=== PATIENT | male | born 1965 | race Caucasian/White ===

== ENCOUNTER → 2020-03-25 14:13 | Outpatient (CLI) | payer SELFPAY | PROVIDERS: Visit Provider Nurse Practitioner Family | DX: Z02.4 Encounter for examination for driving license (principal) ==

== ENCOUNTER 2020-05-28 20:19 | Emergency (ER) | payer OTHER, SELFPAY ==
[2020-05-28] VITALS (9 sets, daily range): BP systolic 147–256; BP diastolic 72–105; PULSE 53–78; RESP 15–21; TEMP 36.6–36.8; O2SAT 98–100; BMI 29.7; BMI 29.8
--- NOTE | 2020-05-28 20:33 | ECG_ITS ---
APPROVED REPORT Exam: Resting ECG HR:66 bpm ECG Measurements Heart Rate 66 AXES TN 164 P 51 QRSd 90 QRS 55 QT 382 T 64 QTc 400 <Conclusion> Normal sinus rhythm with sinus arrhythmia ST elevation, Probable early repolarization Abnormal ECG Electronically signed by : Travis Juan, 05/30/2020 20:00:13
--- NOTE | 2020-05-28 20:39 | PC.NURSE ---
PATIENT SENT TO ER PER ALEXUS OMALLEY APRN FOR FURTHER EVALUATION OF SUDDEN ONSET OF DIZZINESS AND ELEVATED BLOOD PRESSURE. REPORT GIVEN TO Maureen UGALDE RN
--- NOTE | 2020-05-28 20:40 | XR_ITS ---
PROCEDURE: XR CHEST PORTABLE CLINICAL HISTORY: chest pain COMPARISON: No exams were available for comparison FINDINGS: There is mild cardiomegaly without failure. There is a calcified granuloma in right upper lobe. Lungs are otherwise clear. No acute bony abnormalities. IMPRESSION: Mild cardiomegaly otherwise negative Dictated by: Alfred Perry MD 05/28/2020 21:57 Alfred Perry MD in [place] 05/28/2020 21:57
--- NOTE | 2020-05-28 20:41 | ECG_ITS ---
APPROVED REPORT Exam: Resting ECG HR:73 bpm ECG Measurements Heart Rate 73 AXES [place] 166 P 57 QRSd 92 QRS 61 QT 370 T 38 QTc 407 <Conclusion> Normal sinus rhythm Normal ECG Electronically signed by : Travis Juan, 05/30/2020 19:58:18
--- NOTE | 2020-05-28 20:47 | HMH.EDGENADL ---
ED Disposition Clinical Impression: BPPV (benign paroxysmal positional vertigo) Qualifiers: Laterality: unspecified laterality Qualified Code(s): H81.10 - Benign paroxysmal vertigo, unspecified ear Disposition: Home, Self-Care Condition on Discharge: Fair Instructions: Benign Paroxysmal Positional Vertigo Prescriptions: Meclizine HCl [Antivert 12.5mg tablet] 12.5 mg PO Q6 #12 tab Transmission Status: Received by [facility] Referrals: PCP,No [Primary Care Provider] - Time of Disposition: 23:17 - Critical Care Critical Care Time: No Attestation: On 05/28/20, the high probability of a clinically significant, sudden or life threatening deterioration of the following system(s) required my full and direct attention, intervention and personal management. The time I documented below is in addition to time spent performing reported procedures but includes the following listed in this critical care notation. Medical Decision Making - Medical Records Medical records reviewed: Yes: I reviewed the patient's medical records. - Nicolás Inquiry Pt receiving controlled substance: No Vital Signs: 05/28/20 20:30 05/28/20 20:35 05/28/20 20:42 Temperature 97.8 F 98.3 F Temperature Source Oral Oral Pulse Rate Pulse Rate [Left Brachial] 69 78 Respiratory Rate 21 15 Blood Pressure Blood Pressure [Left Arm] 171/97 H 171/103 H 185/105 H Blood Pressure Mean [Left Arm] 121 125 131 Blood Pressure Source [Left Arm] Automatic Cuff Automatic Cuff Blood Pressure Position [Left Arm] Sitting Sitting Supine 02 Sat by Pulse Oximetry 99 98 Oxygen Delivery Method Room Air Room Air 05/28/20 20:59 05/28/20 21:30 05/28/20 22:00 Temperature Temperature Source Pulse Rate Pulse Rate [Left Brachial] 58 L 64 64 Respiratory Rate 15 18 18 Blood Pressure Blood Pressure [Left Arm] 152/84 H 160/72 H 163/91 H Blood Pressure Mean [Left Arm] 106 101 115 Blood Pressure Source [Left Arm] Automatic Cuff Automatic Cuff Automatic Cuff Blood Pressure Position [Left Arm] Sitting Supine Supine 02 Sat by Pulse Oximetry 98 98 100 Oxygen Delivery Method Room Air Room Air Room Air 05/28/20 22:30 05/28/20 23:00 05/28/20 23:30 Temperature Temperature Source Pulse Rate Pulse Rate [Left Brachial] 58 L 53 L 54 L Respiratory Rate 18 18 Blood Pressure Blood Pressure [Left Arm] 256/86 H 147/86 H 150/83 H Blood Pressure Mean [Left Arm] 142 106 105 Blood Pressure Source [Left Arm] Automatic Cuff Automatic Cuff Blood Pressure Position [Left Arm] Supine Supine 02 Sat by Pulse Oximetry 98 99 98 Oxygen Delivery Method Room Air Room Air 05/29/20 00:00 05/29/20 00:08 Temperature 98.6 F Temperature Source Oral Pulse Rate 85 Pulse Rate [Left Brachial] 54 L Respiratory Rate 18 15 Blood Pressure 152/84 H Blood Pressure [Left Arm] 152/79 H Blood Pressure Mean [Left Arm] 103 Blood Pressure Source [Left Arm] Automatic Cuff Blood Pressure Position [Left Arm] Supine 02 Sat by Pulse Oximetry 98 Oxygen Delivery Method Room Air Room Air - Lab Data Lab Results 05/28/20 20:55: WBC 8.3, RBC 4.79, Hgb 14.3, Hct 40.5 L, MCV 84.4, MCH 29.9, MCHC 35.4, RDW 13.3, Plt Count 215, MPV 7.6, Neut % (Auto) 67.8, Lymph % (Auto) 25.9, Routt % (Auto) 5.2, Eos % (Auto) 0.7, Baso % (Auto) 0.4, Neut # (Auto) 5.6, Lymph # (Auto) 2.1, Routt # (Auto) 0.4, Eos # (Auto) 0.1, Baso # (Auto) 0.0 05/28/20 20:55: Sodium 142, Potassium 4.1, Chloride 106, Carbon Dioxide 27, Anion Gap 13.1, BUN 17, Creatinine 0.80, Estimated Creat Clear 143, Estimated GFR 100, Est GFR ( Amer) 121, Glucose 117 H, Calcium 9.3, Troponin I < 0.01 05/28/20 23:30: Troponin I < 0.01 Result diagrams: 05/28/20 20:55 05/28/20 20:55 Orders (Tests/Meds): ED MEDICATIONS Discontinued Medications Generic Name Dose Route Start Last Admin Trade Name Freq PRN Reason Stop Dose Admin Aspirin 325 mg 05/28/20 20:47 05/28/20 20:57 Aspirin 325mg Tablet P
[2020-05-28 21:02] LABS: Basophils % 0.4 % (0.1-2.0); Eosinophils # 0.1 K/mm3 (0.0-0.4); Eosinophils % 0.7 % (0.1-12.0); Hematocrit 40.5 % (42.0-52.0); Hemoglobin 14.3 g/dL (14.1-18.0); Lymphocytes # 2.1 K/mm3 (0.7-4.5); Lymphocytes % 25.9 % (10-50); Mean Corpuscular HGB Conc 35.4 g/dL (31.8-35.4); Mean Corpuscular Hemoglobin 29.9 pg (27.0-31.2); Mean Corpuscular Volume 84.4 fl (80-94); Mean Platelet Volume 7.6 fl (7.4-10.4); Monocytes # 0.4 K/mm3 (0.1-1.0); Monocytes % 5.2 % (1.7-9.3); Neutrophils # 5.6 K/mm3 (1.8-7.8); Neutrophils % 67.8 % (37.0-80.0); Platelet Count 215 K/mm3 (142-424); Red Blood Count 4.79 M/mm3 (4.60-6.20); Red Cell Distribution Width 13.3 % (11.5-17.5); White Blood Count 8.3 K/mm3 (4.8-10.8)
[2020-05-28 21:13] LABS: Chloride 106 mmol/L (98-107); Sodium 142 mmol/L (136-145)
[2020-05-28 21:14] LABS: Potassium 4.1 mmoL/L (3.5-5.1)
[2020-05-28 21:17] LABS: Anion Gap 13.1 mEq/L (5-15); Blood Urea Nitrogen 17 mg/dl (9-20); Calcium 9.3 mg/dl (8.4-10.2); Carbon Dioxide 27 mmol/L (22.0-30.0); Creatinine Clearance Estimated 143 mL/min (50-200); Estimated Glomerular Filt Rate 100 ml/min (>60); GFR (African American) 121 ML/MIN (>60); Glucose 117 mg/dl (74-100)
--- NOTE | 2020-05-28 21:24 | PC.NURSE ---
repeat ekg to rule out stemi
[2020-05-28 21:40] LABS: Troponin I < 0.01 ng/ml (0.00-0.034)
--- NOTE | 2020-05-28 22:17 | PC.NURSE ---
NOTIFIED PATIENT OF REQUEST BY MD TO REPEAT A TROPONIN AT THE 3 HOUR ROSY. PATIENT AGREEABLE AT THIS TIME. WATER GIVEN TO PATIENT, AND TV TURNED ON.
--- NOTE | 2020-05-28 23:36 | PC.NURSE ---
2nd troponin collected and sent to lab
[2020-05-28 23:59] LABS: Troponin I < 0.01 ng/ml (0.00-0.034)
[2020-05-29] VITALS: BP 152/79; PULSE 54; RESP 18; O2SAT 98
[2020-05-29 00:08] VITALS: BP 152/84; PULSE 85; RESP 15; TEMP 37; O2SAT 98
== END 2020-05-29 00:09 | disposition home or self-care (01) ==
LOC: UTC 20:24 → ER 20:39
PROVIDERS: Emergency Provider Emergency Medicine
DX: H81.10 Benign paroxysmal vertigo, unspecified ear (principal)
CPT/HCPCS: 71045; 80048; 84484; 85025; 93005; 96365; 99284

== ENCOUNTER → 2020-08-04 16:21 | Outpatient (CLI) | payer OTHER, SELFPAY ==
[2020-08-04 17:05] LABS: Basophils % 0.5 % (0.1-2.0); Eosinophils # 0.1 K/mm3 (0.0-0.4); Eosinophils % 1.3 % (0.1-12.0); Hematocrit 41.2 % (42.0-52.0); Hemoglobin 13.2 g/dL (14.1-18.0); Lymphocytes # 2.4 K/mm3 (0.7-4.5); Lymphocytes % 41.4 % (10-50); Mean Corpuscular Hemoglobin 27.4 pg (27.0-31.2); Mean Corpuscular Volume 85.6 fl (80-94); Mean Platelet Volume 6.9 fl (7.4-10.4); Monocytes # 0.4 K/mm3 (0.1-1.0); Monocytes % 6.3 % (1.7-9.3); Neutrophils # 2.9 K/mm3 (1.8-7.8); Neutrophils % 50.4 % (37.0-80.0); Platelet Count 229 K/mm3 (142-424); Red Blood Count 4.82 M/mm3 (4.60-6.20); Red Cell Distribution Width 13.4 % (11.5-17.5); White Blood Count 5.8 K/mm3 (4.8-10.8)
[2020-08-04 18:03] LABS: Alanine Aminotransferase 29 U/L (12-78); Albumin Level 4.6 g/dl (3.5-5.0); Albumin/Globulin Ratio 1.7 (1.1-1.8); Alkaline Phosphatase 62 U/L (38-126); Anion Gap 12.6 mEq/L (5-15); Aspartate Amino Transferase 28 U/L (17-59); Bilirubin,Total 0.5 mg/dl (0.2-1.3); Blood Urea Nitrogen 10 mg/dl (9-20); Calcium 9.4 mg/dl (8.4-10.2); Carbon Dioxide 29 mmol/L (22.0-30.0); Chloride 105 mmol/L (98-107); Cholesterol 217 mg/dl (140-200); Estimated Glomerular Filt Rate 78 ml/min (>60); GFR (African American) 94 ML/MIN (>60); Globulin 2.7 g/dL (1.3-3.2); Glucose 88 mg/dl (74-100); HDL Cholesterol 36 mg/dl (40-60); Potassium 4.6 mmoL/L (3.5-5.1); Sodium 142 mmol/L (136-145); Total Protein,Serum 7.3 g/dl (6.3-8.2); Triglycerides 154 mg/dl (30-150); VLDL Cholesterol 31 mg/dL (0-40)
[2020-08-04 18:14] LABS: Direct LDL Cholesterol 159.77 mg/dL (100-129)
[2020-08-04 20:25] LABS: Hemoglobin A1C 4.9 % (4.0-6.0)
== END ==
PROVIDERS: Visit Provider Internal Medicine Adolescent Medicine
DX: Z00.00 Encounter for general adult medical examination without abnormal findings (principal); K62.5 Hemorrhage of anus and rectum; R35.8 Other polyuria
CPT/HCPCS: 36415; 80053; 80061; 83036; 85025

== ENCOUNTER → 2020-08-18 10:19 | Outpatient (CLI) | payer OTHER, SELFPAY ==
--- NOTE | 2020-08-18 10:25 | XR_ITS ---
PROCEDURE: XR KNEE RT 4V CLINICAL INDICATION: right knee pain COMPARISON: CR Right Knee from 05/13/2018 FINDINGS: No fracture or dislocation. No lytic or blastic change. There is normal mineralization. There are mild osteoarthritic changes of the medial compartment and patellofemoral joint. Spurring is present at the intercondylar region of the distal femur and tibial spine area as well as the medial compartment and patella Other findings:None. IMPRESSION: Osteoarthritis Dictated by: Alfred Perry MD 08/18/2020 14:55 Alfred Perry MD in [place] 08/18/2020 14:55
--- NOTE | 2020-08-18 10:25 | XR_ITS ---
PROCEDURE: XR KNEE LT 4V CLINICAL INDICATION: left knee pain COMPARISON: CR Right Knee from 05/13/2018 FINDINGS: Status post medial hemiarthroplasty. The prosthesis appears to be in good alignment. No fracture or dislocation. Calcification noted in the suprapatellar region unchanged. Mild osteoarthritic changes the patellofemoral joint and lateral compartment. IMPRESSION: Good position medial hemiarthroplasty with osteoarthritis Dictated by: Alfred Perry MD 08/18/2020 14:56 Alfred Perry MD in [place] 08/18/2020 14:56
[2020-08-18 14:00] LABS: C-Reactive Protein 1.4 mg/L (0-4)
[2020-08-18 14:15] LABS: Erythrocyte Sedimentation Rate 12 mm/hr (0-20)
== END ==
PROVIDERS: PCP Internal Medicine Adolescent Medicine; Visit Provider Orthopaedic Surgery
DX: M25.562 Pain in left knee (principal); M25.561 Pain in right knee
CPT/HCPCS: 36415; 73564; 85651; 86140

== ENCOUNTER → 2020-08-18 12:12 | Outpatient (CLI) | payer OTHER, SELFPAY | PROVIDERS: Visit Provider Orthopaedic Surgery | DX: M25.562 Pain in left knee (principal) | CPT/HCPCS: 36415; 85651; 86140 ==

== ENCOUNTER → 2020-10-11 09:04 | Outpatient (CLI) | payer OTHER, SELFPAY ==
[2020-10-11 11:09] LABS: Coronavirus 19 IgG Antibody Positive (Negative)
[2020-10-11 11:10] LABS: Coronavirus 19 IgM Antibody Positive (Negative)
== END ==
PROVIDERS: PCP Internal Medicine Adolescent Medicine; Visit Provider Surgery
DX: Z01.812 Encounter for preprocedural laboratory examination (principal); Z86.16 Personal history of COVID-19; Z12.11 Encounter for screening for malignant neoplasm of colon
CPT/HCPCS: 36415; 86328; U0003

== ENCOUNTER 2020-10-12 09:05 | Day surgery (SDC) | payer OTHER, SELFPAY ==
[2020-10-12 09:25] VITALS: BP 161/110; PULSE 74; RESP 18; TEMP 36.9; O2SAT 97; BMI 28.5
--- NOTE | 2020-10-12 09:41 | P.PN_ITS ---
[facility] Anesthesia Checklist - Patient Identification Patient Identification: Arm Band - Structural Data Admitted From: Home Planned Operative Procedure/s: colonoscopy Consent for Planned Operative Procedure(s) Verified: Yes Verified Documents: Surgical Consent, History and Physical - NPO Status Verified Time NPO: 00:00 - Additional verifications Anesthesia Reactions: No - Airway Assessment C-Spine Mobility Assessed: Yes (mp2) TMJ Mobility Assessed: Yes Dentition: Good Dentition - Neurological Assessment Level of Consciousness: Awake, Alert - Anesthesia Plan Anesthesia Risk discussed: Yes Anesthesia Plan: Verified ASA Class: II Anesthesia Type: MAC [facility] History I have reviewed the patient's past medical history: Yes Medical History: Reports:: Hypertension Denies:: Cancer, Diabetes Mellitus Type 1, Diabetes Mellitus Type 2, Internal Pacemaker, MRSA, Seizures *Have you ever received a pneumonia vaccine?: No *Have you received a flu vaccine this season?: Yes Other Medical History: Reports: Arthritis Anesthesia experience/problems:: nac Laterality Cases: Left: Arthroscopy Shoulder, Total Knee Replacement, Bilateral: Arthroscopy Knee Other Surgeries: Yes: Colonoscopy. No: Pacemaker Amputation: No Fractures: No - *Social History Smoking Status: Never smoker Alcohol Intake: never Substance Use Type: denies use *Occupational Status:: unemployed Household Members: spouse *Travel in the last 8 weeks: None Family Hx:: No significant family history
[2020-10-12 10:46] VITALS: BP 102/64; PULSE 63; RESP 12; TEMP 36.9; O2SAT 96
--- NOTE | 2020-10-12 10:49 | HMH.SCOPE ---
- Procedure: Date: 10/12/20 Patient Date of :: 1965 Procedure Performed:: Total colonoscopy to terminal ileum with polypectomy by snare and biopsy forceps Indications:: Patient is a 55-year-old male from [place] who is referred by Dr. Supa Barry for colonoscopy. Patient had actually requested referral. I had apparently performed colonoscopy on him for rectal bleeding 15 years ago. Patient states that he had hemorrhoids at that time. Recently he has had some rectal bleeding. Occasionally he has some mucousy blood. He has not had any for the past 2 months. He also describes stomach problems . He describes occasionally awakening with nausea and having to have bowel movement. He also seems to have hyperactive type bowel sounds. Performing Provider:: Kingston Justice MD Referring Provider:: Supa Barry MD Sedation:: MAC sedation Procedure:: Consent was obtained. Patient was taken to endoscopy procedure room. He was positioned in lateral decubitus position. Adequate intravenous sedation was achieved with anesthesia titration of propofol. Please note the patient required an appreciable amount of administration of anesthetic for adequate sedation. Variable stiffness Olympus colonoscope was inserted via the anus. Was advanced to the cecum without significant difficulty. Ileocecal valve and appendiceal orifice were clearly identified. Colonoscope was advanced a short distance into the terminal ileum which appeared grossly normal. Colonoscope was withdrawn through the colon with careful surveillance. Near the hepatic flexure there is a small, several millimeter, adenomatous appearing polyp removed with cold cutting snare. Adjacent to this there was a tiny diminutive polyp removed with biopsy forceps. Colonoscope was withdrawn through the remainder of the colon with careful surveillance. In the distal transverse colon there were a couple of tiny diminutive polyps removed with biopsy forceps. Retroflexion within the rectum revealed some minor prolapsing internal hemorrhoids. Colonoscope was withdrawn. Findings:: Minimal prolapsing internal hemorrhoids Adenomatous appearing hepatic flexure polyp Adjacent diminutive hepatic flexure polyp Small distal transverse colon polyp, diminutive, x2 Recommendations:: Repeat colonoscopy 3 to 5 years pending pathology. Occasional rectal bleeding likely from minor prolapsing internal hemorrhoid Complications:: None immediately apparent Estimated blood obtained (mL): 1
[2020-10-12 10:56] VITALS: BP 98/59; PULSE 86; RESP 16; O2SAT 97
[2020-10-12 11:06] VITALS: BP 137/77; PULSE 70; RESP 16; O2SAT 99
[2020-10-12 11:16] VITALS: BP 137/85; PULSE 60; RESP 16; TEMP 36.9; O2SAT 99
== END 2020-10-12 11:18 | disposition home or self-care (01) ==
LOC: OUTP 09:05
PROVIDERS: PCP Internal Medicine Adolescent Medicine; Visit Provider Surgery
PROC: 0DJD8ZZ Inspection of Lower Intestinal Tract, Via Natural or Artificial Opening Endoscopic (ICD-10-PCS; CPT 45385; principal; 2020-10-12 10:30)
DX: K64.2 Third degree hemorrhoids; K63.5 Polyp of colon; I10 Essential (primary) hypertension; M19.90 Unspecified osteoarthritis, unspecified site; Z79.899 Other long term (current) drug therapy
CPT/HCPCS: 45385

== ENCOUNTER → 2021-02-02 13:22 | Outpatient (CLI) | payer OTHER, SELFPAY ==
--- NOTE | 2021-02-02 13:24 | XR_ITS ---
PROCEDURE: XR SHOULDER LT MIN 2V CLINICAL INDICATION: left shoulder pain COMPARISON: No exams were available for comparison FINDINGS: No acute fracture or dislocation. Calcification is present along the superior aspect of the humeral head in the subacromial region consistent with calcific tendinitis. Sclerotic density noted in the inferior glenoid area at 5 mm and may be due to a bone island. There are mild osteoarthritic changes of the glenohumeral joint. The AC joint has an unremarkable appearance. No significant subacromial stenosis IMPRESSION: Calcific tendinitis of the rotator cuff with mild osteoarthritic change of the glenohumeral joint Dictated by: Alfred Perry MD 02/02/2021 13:34 Alfred Perry MD in [place] 02/02/2021 13:34
== END ==
PROVIDERS: PCP Internal Medicine Adolescent Medicine; Visit Provider Orthopaedic Surgery
DX: M25.512 Pain in left shoulder (principal)
CPT/HCPCS: 73030

== ENCOUNTER → 2021-02-17 12:46 | Outpatient (CLI) | payer OTHER, SELFPAY ==
--- NOTE | 2021-02-17 12:46 | IR_ITS ---
PROCEDURE: IR ARTHROGRAM SHOULDER LT CLINICAL INDICATION: left shoulder pain; recurrent dislocations COMPARISON: CR XR SHOULDER LT MIN 2V from 02/02/2021 FINDINGS: Following obtaining informed consent and time-out procedure under aseptic conditions and local anesthesia with 1 percent buffered lidocaine, a 20 gauge spinal needle was inserted into the left shoulder via the anterior approach. Approximately 10 mL of a mixture of Isovue, gadolinium, and lidocaine was injected. There was adequate localization of contrast. The patient tolerated the procedure well without evidence of immediate complication. Images were then obtained and the patient was sent to MRI where MRI arthrogram images were obtained. There is no abnormal localization of contrast that would indicate a rotator cuff tear. There is a small metallic density projecting in the axillary region measuring approximately 4 mm. No evidence of adhesive capsulitis. IMPRESSION: Uneventful and unremarkable left shoulder arthrogram. Please see MRI report for further description. Dictated by: Alfred Perry MD 02/24/2021 09:52 Alfred Perry MD in [place] 02/24/2021 09:52
--- NOTE | 2021-02-17 12:46 | MR_ITS ---
PROCEDURE: MR SHOULDER LT W CON CLINICAL INDICATION: left shoulder pain; recurrent dislocations Limited ROM. COMPARISON: CR,RF IR ARTHROGRAM SHOULDER LT from 02/17/2021 TECHNIQUE: Routine multiplanar multi echo sequences are performed following intra articular injection of contrast.. FINDINGS: There is a moderate degree of motion artifact on every sequence. This obscures fine detail. Mild prominence of the acromioclavicular joint. No obvious subacromial stenosis. The infraspinatus tendon has an unremarkable appearance. There is a full-thickness tear involving the posterior aspect of the supraspinatus tendon with a small amount of localization of contrast in the infraclavicular region. Heterogeneous hypointensity is present in the subacromial region. One of these areas may represent some calcification noted on the radiograph. The subscapularis and teres minor tendons have an unremarkable appearance. The bicipital tendon is in place. There is a question of a SLAP tear of the superior labrum versus a sublabral recess. It is difficult to distinguish the difference between the 2 due to the motion artifact.. Subchondral cystic changes are present in the humeral head. Two small areas do fill with contrast. There is some irregularity of the humeral head consistent with degenerative changes. IMPRESSION: 1. Full-thickness tear involves the posterior aspect of the supraspinatus tendon with some heterogeneous intensity in the sub acromial area some which may be due to calcification and partially retracted tendon. 2. Possible slap tear of the glenoid labrum versus sublabral recess. It is difficult to distinguish between the 2 secondary to motion artifact. 3. Subchondral cystic changes of the humeral head Dictated by: Alfred Perry MD 02/24/2021 10:06 Alfred Perry MD in [place] 02/24/2021 10:06
--- NOTE | 2021-02-17 12:50 | XR_ITS ---
PROCEDURE: XR ORBIT BILATERAL MIN 4V CLINICAL INDICATION: MRI CLEARANCE History of foreign body in the eye COMPARISON: No exams were available for comparison TECHNIQUE: AP views are obtained of the orbits with the patient looking up and down. FINDINGS: No radio opaque foreign bodies evident. IMPRESSION: No radio opaque orbital foreign body identified. Dictated by: Alfred Prery MD 02/17/2021 13:00 Alfred Perry MD in [place] 02/17/2021 13:00
== END ==
PROVIDERS: PCP Internal Medicine Adolescent Medicine; Visit Provider Orthopaedic Surgery
DX: M25.512 Pain in left shoulder (principal); M24.412 Recurrent dislocation, left shoulder; G89.29 Other chronic pain; H05.53 Retained (old) foreign body following penetrating wound of bilateral orbits
CPT/HCPCS: 70200; 73040; 73222; Q9967

== ENCOUNTER 2021-04-04 13:27 | Emergency (ER) | payer OTHER, SELFPAY ==
--- NOTE | 2021-04-04 13:29 | XR_ITS ---
PROCEDURE: XR HAND RT MIN 3V CLINICAL INDICATION: SLAMMED HAND IN DOOR COMPARISON: No exams were available for comparison FINDINGS: There is a well-circumscribed lucency through the distal and ulnar aspect of the proximal phalanx of the 3rd digit. This is consistent with an old fracture. No acute fracture or dislocation is evident. The joint spaces are well-preserved. No significant degenerative/arthritic changes. No erosive changes evident. Other findings:Nonspecific soft tissue calcifications present along the anterior distal aspect of the radius IMPRESSION: Old fracture involving the proximal phalanx of the 3rd digit. No acute finding apparent Dictated by: Alfred Perry MD 04/04/2021 14:55 Alfred Perry MD in [place] 04/04/2021 14:55
[2021-04-04 13:50] VITALS: BP 159/112; PULSE 60; RESP 20; TEMP 36.8; O2SAT 98; BMI 29.9
--- NOTE | 2021-04-04 14:34 | HMH.EDUTC ---
[facility] [place] Disposition Clinical Impression: Finger sprain Qualifiers: Encounter type: initial encounter Finger: middle finger Sprain of finger site: unspecified site Laterality: right Qualified Code(s): S63.612A - Unspecified sprain of right middle finger, initial encounter Disposition: Home, Self-Care Condition on Discharge: Good Instructions: How To Perform RICE (Rest, Ice, Compress, Elevate), Ibuprofen Additional Instructions: *RICE, Rest the extremity, Ice 15-20 minutes 3-4 times daily, Compress- wear the nathen wrap as discussed as much as possible to help reduce swelling and pain, Elevate the extremity when at rest *Nathen wrap is for support and help control swelling, use it except in the shower. Be sure that is not to tight but not to loose either *Elevate when resting *Ibuprofen every 6-8 hours as needed for pain an inflammation. If need something more can take Tylenol in between doses of Ibuprofen to help Immediately follow up with your family doctor for new or worsening of symptoms, or no noticeable improvement over the next 3-5 days Follow up with Dr Trejo in Orthopedics if needed, call and make appointment Follow up with your Family Doctor for further evaluation and treatment Referrals: Supa Barry MD [Primary Care Provider] - As needed Андрей Trejo MD [Staff Physician] - (Call office for appointment if needed) Time of Disposition: 14:42 Medical Decision Making - Nicolás Inquiry Pt receiving controlled substance: No Nicolás was queried for this patient: No Vital Signs: 04/04/21 13:50 04/04/21 14:38 Temperature 98.3 F 98.3 F Temperature Source Oral Pulse Rate 60 Pulse Rate [Left Brachial] 60 Respiratory Rate 20 20 Blood Pressure 159/112 H Blood Pressure [Left Arm] 159/112 H Blood Pressure Mean [Left Arm] 127 Blood Pressure Source [Left Arm] Automatic Cuff Blood Pressure Position [Left Arm] Sitting 02 Sat by Pulse Oximetry 98 Oxygen Delivery Method Room Air - Radiology Data #1 Image(s): Hand Image Reviewed: Yes I have reviewed radiologist's interpretation Old fracture involving the proximal phalanx of the 3rd digit. No acute finding apparent - Physician Consults Physician Consulted: Dr Trejo Time: 14:30 Reason -: Orthopedic Eval/Care Comment/Response: Spoke with Dora Trejo office and informed her of xray finding and she advised she would speak with Dr Trejo and call back Spoke with Dr Trejo and he advised appeared like old fracture have Radiology read it [facility] [place] HPI - General Stated complaint: AO 04/03/21 Right hand 2 fingers slammed in door Time Seen by Provider: 04/04/21 14:34 Mode of Arrival: Ambulatory Source of Information: Patient Limitations: No Limitations Description of Symptoms (Recalled from Triage Doc. by RN): PATIENT C/O PAIN AND SWELLING TO RIGHT HAND. STATES HAND WAS SMASHED BETWEEN 2 AUTOMATIC SLIDING DOORS AT [facility] YESTERDAY HEENT Symptoms (Recalled from RN notes): No Resp Symptoms (Recalled from RN notes): No Skin Symptoms (Recalled from RN notes): No MS Symptoms (Recalled from RN notes): Yes Functional Status (Recalled from RN notes): WNL - History of Present Illness Provider Complaint: Patient state that he was at [facility] yesterday and went to push open a door that did not open and it started moving and smashed his right hand across his fingers States that ever since he has been having pain in his middle and ring finger with swelling in all his fingers and hand so he came in States that he notified [facility] about his injury - Related Data Home Medications Medication Instructions Recorded Confirmed gabapentin 600 mg tablet 600 mg PO TID tab 01/12/21 04/04/21 Oxycodone HCl/Acetaminophen 1 tab PO QID 04/04/21 04/04/21 [Percocet 10-325 mg Tablet] Allergies Allergy/AdvReac Type Severity Reaction Status Date / Time No Known Allergies Allergy Verified 03/02/21 15:45 - Worker's Comp Is this a Worker's Comp case?: No [facility] History - H
[2021-04-04 14:38] VITALS: BP 159/112; PULSE 60; RESP 20; TEMP 36.8; O2SAT 98
== END 2021-04-04 15:23 | disposition home or self-care (01) ==
PROVIDERS: Emergency Provider Nurse Practitioner; PCP Internal Medicine Adolescent Medicine
DX: S63.612A Unspecified sprain of right middle finger, initial encounter (principal); W23.1XXA Caught, crushed, jammed, or pinched between stationary objects, initial encounter; Y92.89 Other specified places as the place of occurrence of the external cause; I10 Essential (primary) hypertension
CPT/HCPCS: 73130; 99202; G0463

== ENCOUNTER → 2021-05-11 09:45 | Outpatient (CLI) | payer OTHER, SELFPAY ==
--- NOTE | 2021-05-11 09:50 | XR_ITS ---
PROCEDURE: XR HAND RT MIN 3V CLINICAL INDICATION: RT 3rd/4th digit injury COMPARISON: CR XR HAND RT MIN 3V from 04/04/2021 FINDINGS: Old fracture once again noted involving the distal aspect of the proximal phalanx of the 3rd digit along the ulnar side Mild osteoarthritic changes at the 1st interphalangeal joint and 1st metacarpophalangeal joint. Mild degenerative changes in the wrist. No acute fracture apparent. Other findings:None. IMPRESSION: No change with no acute finding. Old ununited fracture of the proximal phalanx of the 3rd digit Dictated by: Alfred Perry MD 05/11/2021 11:55 Alfred Perry MD in [place] 05/11/2021 11:55
== END ==
PROVIDERS: PCP Internal Medicine Adolescent Medicine; Visit Provider Orthopaedic Surgery
DX: S63.619A Unspecified sprain of unspecified finger, initial encounter (principal)
CPT/HCPCS: 73130

== ENCOUNTER → 2021-08-22 15:08 | Outpatient (CLI) | payer OTHER, SELFPAY ==
--- NOTE | 2021-08-22 15:11 | XR_ITS ---
PROCEDURE: XR FOOT RT MIN 3V CLINICAL INDICATION: MASS OF RT FOOT COMPARISON: No exams were available for comparison FINDINGS: No fracture or dislocation. No lytic or blastic change. There is normal mineralization. The joint spaces are well-preserved. No significant degenerative/arthritic changes. No erosive changes evident. Other findings:Focal soft tissue protrusion noted along the lateral aspect of the base of the 5th metatarsal region. No bony erosive change apparent. This measures 1.9 cm at its base IMPRESSION: Soft tissue mass base of 5th metatarsal without bony erosion. Dictated by: Alfred Perry MD 08/22/2021 17:29 Alfred Perry MD in [place] 08/22/2021 17:29
== END ==
PROVIDERS: PCP Internal Medicine Adolescent Medicine; Visit Provider Internal Medicine Adolescent Medicine
DX: R22.41 Localized swelling, mass and lump, right lower limb (principal)
CPT/HCPCS: 73630

== ENCOUNTER → 2021-09-07 13:09 | Outpatient (CLI) | payer OTHER, SELFPAY ==
--- NOTE | 2021-09-07 13:36 | MR_ITS ---
PROCEDURE INFORMATION: Exam: MR Right Lower Extremity Other Than Joint Without Contrast; Foot Exam date and time: 09/07/2021 1:36 PM Age: 56 years old Clinical indication: Pain; Foot; Right; Additional info: Soft tissue mass. PT dropped concrete block on foot 6 months ago, now has soft tissue mass on lateral side of foot. PT states it gets bigger as the day goes on and hes up moving a lot. TECHNIQUE: Imaging protocol: MR of the Right lower extremity without contrast. Exam focused on the foot. COMPARISON: CR XR FOOT RT MIN 3V 08/22/2021 3:14 PM FINDINGS: Limitations: The large [id number] utilized to image the entire foot and ankle results in proportionally lower anatomic detail. Bones and cartilage: There is no acute fracture or dislocation. No aggressive bone lesions are present. There are small dorsal and plantar calcaneal enthesophytes. Joint spaces: A mild effusion involves the talonavicular joint. LIGAMENTS: Lisfranc ligament: Unremarkable. No evidence of tear. TENDONS: Flexor tendons of foot: Unremarkable. No evidence of tear. Tibialis posterior tendon: Unremarkable as visualized. Peroneal tendons: Trace tenosynovitis involves the peroneal tendon sheath. Extensor tendons of foot: Unremarkable. No evidence of tear. Tibialis anterior tendon: Unremarkable as visualized. Tarsal canal (Sinus tarsi): Unremarkable. Tarsal tunnel: Unremarkable. Soft tissues: The palpable lesion along the lateral aspect of the fifth tarsometatarsal joint was indicated with a skin marker. In this region there is an oval fluid signal intensity mass in the subcutaneous fat that measures 1.2 x 0.7 x 0.9 cm (AP, ML, CC), as measured on series 4/image 23 and series 6/image 35. There is no convincing neck from the adjacent fifth tarsometatarsal joint, although this could be missed due to the large field of view of the study. Adjacent blood vessels do not appear to communicate with this cystic appearing lesion. A solid mucinous mass cannot be excluded in the absence of IV contrast. Moderate subcutaneous edema involves the dorsolateral foot. Plantar fascia: Unremarkable as visualized. IMPRESSION: 1. Cystic-appearing 1.2 x 0.7 x 0.9 cm mass in the soft tissues lateral to the fifth tarsometatarsal joint. A mucinous solid mass cannot be excluded in the absence of IV contrast. There is no visible neck from the adjacent fifth metatarsal joint although this could be missed due to the large field of view of the study. 2. Trace tenosynovitis of the peroneal tendons. 3. Mild talonavicular joint effusion.
== END ==
PROVIDERS: PCP Internal Medicine Adolescent Medicine; Visit Provider Internal Medicine Adolescent Medicine
DX: M79.89 Other specified soft tissue disorders (principal); M79.671 Pain in right foot
CPT/HCPCS: 73718

== ENCOUNTER → 2021-10-24 08:09 | Outpatient (CLI) | payer OTHER, SELFPAY | PROVIDERS: PCP Internal Medicine Adolescent Medicine; Visit Provider Surgery | DX: Z01.812 Encounter for preprocedural laboratory examination (principal); Z11.52 Encounter for screening for COVID-19; Z13.810 Encounter for screening for upper gastrointestinal disorder | CPT/HCPCS: C9803; U0003; U0005 ==

== ENCOUNTER 2021-10-25 08:56 | Day surgery (SDC) | payer OTHER, SELFPAY ==
[2021-10-20 11:54] VITALS: BMI 41.5
[2021-10-25 09:11] VITALS: BP 175/89; PULSE 81; RESP 16; TEMP 37.1; O2SAT 96
--- NOTE | 2021-10-25 09:25 | P.PN_ITS ---
[facility] Anesthesia Checklist - Patient Identification Patient Identification: Arm Band - Structural Data Admitted From: Home Planned Operative Procedure/s: egd Consent for Planned Operative Procedure(s) Verified: Yes Verified Documents: Surgical Consent, History and Physical - NPO Status Verified Time NPO: 00:00 - Additional verifications Anesthesia Reactions: No - Airway Assessment C-Spine Mobility Assessed: Yes (mp2) TMJ Mobility Assessed: Yes Dentition: Good Dentition - Neurological Assessment Level of Consciousness: Awake, Alert - Anesthesia Plan Anesthesia Risk discussed: Yes Anesthesia Plan: Verified ASA Class: II Anesthesia Type: MAC [facility] History I have reviewed the patient's past medical history: Yes Medical History: Reports:: Cancer (skin), Gastroesophageal Reflux Disease(GERD), Hypertension Denies:: Diabetes Mellitus Type 1, Diabetes Mellitus Type 2, Internal Pacemaker, MRSA, Seizures *Have you ever received a pneumonia vaccine?: No *Have you received a flu vaccine this season?: Yes Other Medical History: Reports: Arthritis Anesthesia experience/problems:: nac Laterality Cases: Left: Arthroscopy Shoulder, Total Knee Replacement, Bilateral: Arthroscopy Knee Other Surgeries: Yes: Colonoscopy. No: Pacemaker Amputation: No Fractures: No - *Social History Smoking Status: Never smoker Alcohol Intake: never Substance Use Type: denies use *Occupational Status:: disabled Household Members: spouse *Travel in the last 8 weeks: None Family Hx:: No significant family history
[2021-10-25 09:39] VITALS: O2SAT 97
--- NOTE | 2021-10-25 09:55 | HMH.SCOPE ---
- Procedure: Date: 10/25/21 Patient Date of :: 1965 Procedure Performed:: Esophagogastroduodenoscopy with biopsy Indications:: Gastroesophageal reflux Global abdominal pain Abdominal cramping Performing Provider:: Jez Dimas MD Referring Provider:: . Sedation:: Monitored anesthesia care Procedure:: After informed consent was obtained the patient was taken to the endoscopy suite. Sedation ensued after the patient was transferred to the left lateral decubitus position. Pulse, blood pressure, and oxygen saturation were monitored throughout the procedure. The endoscope was advanced beyond the duodenal bulb. Retroflexion within the gastric lumen was accomplished. The gastroscope was carefully removed and the patient was transferred to recovery in stable condition. Please see findings and specimens below for detail. Findings:: Gastroesophageal junction at 42 cm Mild patchy gastritis with focus of increased inflammation along mid gastric body Specimens:: Antral biopsy Mid gastric body biopsy Recommendations:: Follow-up pathology Consider gastroenterology consultation secondary to longstanding global abdominal pain and abdominal cramping Complications:: No immediate Estimated blood obtained (mL): 1
[2021-10-25 10:00] VITALS: BP 131/72; PULSE 68; RESP 22; TEMP 37.1; O2SAT 94
[2021-10-25 10:20] VITALS: BP 118/56; BP 118/68; PULSE 65; PULSE 71; RESP 18; RESP 20; O2SAT 97; O2SAT 98
[2021-10-25 10:30] VITALS: BP 123/77; PULSE 66; RESP 18; O2SAT 99
[2021-10-25 10:40] VITALS: BP 121/72; PULSE 69; RESP 16; O2SAT 99
== END 2021-10-25 10:40 | disposition home or self-care (01) ==
LOC: OUTP 08:58
PROVIDERS: PCP Internal Medicine Adolescent Medicine; Visit Provider Surgery
PROC: 0DJ08ZZ Inspection of Upper Intestinal Tract, Via Natural or Artificial Opening Endoscopic (ICD-10-PCS; CPT 43235; principal; 2021-10-25 09:30)
DX: K29.60 Other gastritis without bleeding (principal); I10 Essential (primary) hypertension; K21.9 Gastro-esophageal reflux disease without esophagitis; Z85.828 Personal history of other malignant neoplasm of skin; Z79.899 Other long term (current) drug therapy
CPT/HCPCS: 43239

== ENCOUNTER 2023-07-17 09:10 | Day surgery (SDC) | payer MEDICARE, OTHER, SELFPAY ==
[2023-07-17] VITALS (14 sets, daily range): BP systolic 135–191; BP diastolic 82–107; PULSE 44–88; RESP 16–18; TEMP 36.1–36.6; O2SAT 95–100; BMI 27.8
--- NOTE | 2023-07-17 09:31 | CT_ITS ---
FINAL REPORT TECHNIQUE: Postcontrast axial images through the abdomen and pelvis were performed. This study was performed with techniques to keep radiation doses as low as reasonably achievable, (ALARA). Individualized dose reduction techniques using automated exposure control or adjustment of mA and/or kV according to the patient's size were employed. CLINICAL HISTORY: RLQ abd pain and tenderness FINDINGS: Abdomen: There is mild atelectasis at the bases. Mild fatty infiltration of the liver is identified. The spleen is unremarkable. The adrenals are normal. The pancreas is unremarkable. There is a small cyst in the posterior left kidney. The aorta is normal in caliber. No free fluid or adenopathy is identified. No findings for mechanical bowel obstruction are identified. Pelvis: The appendix is distended measuring 12 mm, fluid-filled with surrounding inflammation consistent with appendicitis. There are small inguinal hernias containing fat. The urinary bladder is unremarkable. No free fluid, free air, abscess or adenopathy is identified. IMPRESSION: Acute appendicitis. Reviewed, Interpreted and Dictated by Kingston Smiley III, MD Transcribed by Brittany Alvarez Authenticated and [facility]
--- NOTE | 2023-07-17 09:32 | HMH.EDGENADL ---
Discharge Plan Disposition Patient Disposition: Admitted Prescriptions Prescriptions: No Action gabapentin 600 mg tablet 600 mg PO TID lisinopril 20 MG tablet 20 mg PO DAILY oxycodone-acetaminophen 1 EACH tablet 1 tab PO QID Referrals Follow up/Referrals: Supa Barry MD [Primary Care Provider] - See instructions Clinical Impressions Clinical Impression: Acute appendicitis Instructions Patient Instructions: DI for Acute Abdominal Pain Discharge ED Provider: Milton Ruiz General Adult HPI General Chief complaint: Abdominal Pain Stated complaint: RT abd pain Time Seen by Provider: 07/17/23 09:28 Mode of Arrival: Ambulatory Source of Information: Patient Limitations: No Limitations Description of Symptoms (Recalled from ER Triage Doc. by RN): Patient reports right lower quardrant pain that started yesterday. States it is sharp in nature. History of Present Illness HPI narrative: Patient is a 58-year-old male here with right-sided abdominal pain that began yesterday has been progressively worsening since 11 PM is very severe at this point. Denies any dysuria hematuria frequency urgency denies any changes in bowel movement specifically any diarrhea or any blood in the stool. No fevers or chills. Denies any chest pain or any other symptoms. Related Data Home Medications Medication Instructions Recorded Confirmed gabapentin 600 mg tablet 600 mg PO TID Pain 01/12/21 11/02/21 oxycodone-acetaminophen 10 mg-325 1 tab PO QID Pain 04/04/21 11/02/21 mg tablet lisinopril 20 mg tablet 20 mg PO DAILY HTN 10/25/21 11/02/21 Allergies Allergy/AdvReac Type Severity Reaction Status Date / Time No Known Allergies Allergy Verified 11/02/21 08:49 [facility] Disclaimer: The information contained in this section may have been updated after the patient was seen, as this information can be updated by other users. Social History Smoking Status: Never smoker alcohol intake: never substance use type: denies use current occupational status: unemployed Travel in the last 8 weeks: None household members: spouse current occupational exposures/hazards: No caffeine: Yes ROS Obtained: Yes All systems reviewed & no additional complaints except as documented Physical Exam General General appearance: alert Respiratory Respiratory exam: Present normal lung sounds bilaterally Cardiovascular Cardiovascular exam: Present regular rate Abdominal Exam Abdominal exam: Present soft, tenderness (Right lower quadrant tenderness), Rovsing's sign and tenderness at McBurney's Point Neurological Exam Neurological exam: Present alert and oriented X3 Medical Decision Making Nicolás Inquiry Pt receiving controlled substance: No Vital Signs: 07/17/23 09:11 07/17/23 09:46 07/17/23 10:00 Temperature 97.9 F Temperature Source Oral Pulse Rate 44 L 44 L Pulse Rate [Radial] 68 Respiratory Rate 16 Blood Pressure 180/87 H 190/88 H Blood Pressure [Right Arm] 184/107 H Blood Pressure Mean [Right Arm] 132 Blood Pressure Source [Right Arm] Automatic Cuff Blood Pressure Position [Right Arm] Sitting 02 Sat by Pulse Oximetry 99 100 100 Oxygen Delivery Method Room Air Room Air Room Air 07/17/23 10:31 07/17/23 11:28 Temperature Temperature Source Pulse Rate 46 L 45 L Pulse Rate [Radial] Respiratory Rate Blood Pressure 191/101 H 191/92 H Blood Pressure [Right Arm] Blood Pressure Mean [Right Arm] Blood Pressure Source [Right Arm] Blood Pressure Position [Right Arm] 02 Sat by Pulse Oximetry 99 98 Oxygen Delivery Method Room Air Lab Data Lab results reviewed: Yes I reviewed the patient's lab results. Lab Results 07/17/23 09:37: WBC 10.7, RBC 5.15, Hgb 15.5, Hct 43.3, MCV 84.1, MCH 30.1, MCHC 35.8 H, RDW 13.7, Plt Count 219, MPV 7.4, Neut % (Auto) 83.8 H, Lymph % (Auto) 11.7, [place] % (Auto) 3.9, Eos % (Auto) 0.3, Baso % (Auto) 0.2, Neut # (Auto) 8.9
[2023-07-17 09:52] LABS: Basophils % 0.2 % (0.1-2.0); Eosinophils % 0.3 % (0.1-12.0); Hematocrit 43.3 % (42.0-52.0); Hemoglobin 15.5 g/dL (14.1-18.0); Lymphocytes # 1.3 K/mm3 (0.7-4.5); Lymphocytes % 11.7 % (10-50); Mean Corpuscular HGB Conc 35.8 g/dL (31.8-35.4); Mean Corpuscular Hemoglobin 30.1 pg (27.0-31.2); Mean Corpuscular Volume 84.1 fl (80-94); Mean Platelet Volume 7.4 fl (7.4-10.4); Monocytes # 0.4 K/mm3 (0.1-1.0); Monocytes % 3.9 % (1.7-9.3); Neutrophils # 8.9 K/mm3 (1.8-7.8); Neutrophils % 83.8 % (37.0-80.0); Platelet Count 219 K/mm3 (142-424); Red Blood Count 5.15 M/mm3 (4.60-6.20); Red Cell Distribution Width 13.7 % (11.5-17.5); White Blood Count 10.7 K/mm3 (4.8-10.8)
[2023-07-17 09:53] LABS: Chloride 105 mmol/L (98-107); Potassium 4.2 mmoL/L (3.5-5.1); Sodium 138 mmol/L (136-145)
[2023-07-17 09:55] LABS: Blood Urea Nitrogen 11 mg/dl (9-20); Creatinine Clearance Estimated 129 mL/min (50-200); Estimated Glomerular Filt Rate 99 ml/min (>60); GFR (African American) 120 ML/MIN (>60)
[2023-07-17 09:56] LABS: Alanine Aminotransferase 31 U/L (12-78); Albumin Level 4.6 g/dl (3.5-5.0); Albumin/Globulin Ratio 1.3 (1.1-1.8); Alkaline Phosphatase 71 U/L (38-126); Anion Gap 12.2 mEq/L (5-15); Aspartate Amino Transferase 38 U/L (17-59); Bilirubin,Total 0.8 mg/dl (0.2-1.3); Carbon Dioxide 25 mmol/L (22.0-30.0); Globulin 3.5 g/dL (1.3-3.2); Total Protein,Serum 8.1 g/dl (6.3-8.2)
[2023-07-17 09:57] LABS: Calcium 9.4 mg/dl (8.4-10.2); Glucose 139 mg/dl (74-100)
[2023-07-17 10:37] LABS: Microscopic, Urine URINE MICROSCOPIC (MICROSCOPIC)
[2023-07-17 10:41] LABS: Appearance,Urine CLEAR (Clear); Bilirubin,Urine Negative (Negative); Blood, Urine Negative (Negative); Color,Urine YELLOW (Yellow); Glucose,Urine (UA) Negative (Negative); Ketones,Urine Negative (Negative); Leukocyte Esterase,Urine Negative (Negative); Nitrate,Urine Negative (Negative); PH,Urine 7.5 (5.0-8.5); Protein,Urine Negative (Negative); Specific Gravity, Urine 1.015 (1.005-1.030); Urobilinogen,Urine 0.2 EU/dl (0.2)
--- NOTE | 2023-07-17 11:12 | PC.NURSE ---
Pt advised he was still having pain. RN notified.
--- NOTE | 2023-07-17 11:14 | PC.NURSE ---
Dr. Ruiz speaking with Dr. Dimas
--- NOTE | 2023-07-17 11:20 | PC.NURSE ---
Waiting for OR team to come evaluate pt at this time
--- NOTE | 2023-07-17 12:06 | PC.NURSE ---
pt went to OR
--- NOTE | 2023-07-17 12:14 | P.PNANES_ITS ---
[facility] Disclaimer: The information contained in this section may have been updated after the patient was seen, as this information can be updated by other users. Social History Smoking Status: Never smoker alcohol intake: never substance use type: denies use current occupational status: unemployed Travel in the last 8 weeks: None household members: spouse current occupational exposures/hazards: No caffeine: Yes [facility] Anesthesia Checklist Patient Identification Patient Identification: Arm Band and Verbal (Name & ) Structural Data Admitted From: Emergency Dept Planned Operative Procedure/s: Lap Appy Consent for Planned Operative Procedure(s) Verified: Yes Verified Documents: Surgical Consent and History and Physical NPO Status Verified Time NPO: 20:00 Chart Verification Results Verified: CBC, BMP and ECG Additional verifications Patient : No Anesthesia Reactions: No Hx Blood Transfusions: No Blood Transfusion Reaction: No Cephalosporin Allergy: No Previous Colonoscopy: No Cardiovascular Assessment Heart Sounds: S1 & S2 Pulse Rhythm: Irregular Peripheral Edema: No Airway Assessment Mallampati Score:: Class II C-Spine Mobility Assessed: Yes TMJ Mobility Assessed: Yes Dentition: Good Dentition (nothing loose per pt.) Neurological Assessment Level of Consciousness: Awake, Alert and Appropriate Hx Seizures: No Numbness or tingling in extremities: No Anesthesia Plan Anesthesia Risk discussed: Yes Anesthesia Plan: Verified ASA Class: II Anesthesia Type: General
--- NOTE | 2023-07-17 14:15 | EXP.ANES.I ---
[facility] Anesthesia Record Part I Anesthesia Record I Intake, IV Amount: 1,000 Hydration: Adequate Estimated blood loss (mL): 15 Urine output (mL): 450 Blood Pressure: 142/84 SaO2: 95 Pulse Rate: 83 Airway Patency: Patent Respiratory Rate: 18 Temperature: 97 F Patient is:: Drowsy and Oral/Nasal airway Stable to PACU at:: 14:14
--- NOTE | 2023-07-17 14:25 | EXP.OP.NOTE ---
Date of procedure: 07/17/23 Pre-op Diagnosis:: Appendicitis Post-op Diagnosis:: Suppurative appendicitis Procedure performed:: Laparoscopic appendectomy Surgeon:: Jez Dimas MD Anesthesia: GETShantel Estimated blood loss (mL): 15 Operative findings:: Severe appendiceal enlargement Significant periappendiceal laboratory response with adhesions to colon and small bowel Suppurative changes of the mid/distal appendix Operative note:: After informed consent was obtained the patient was taken to the operating room and placed in the supine position. General anesthesia was induced and his abdomen was prepped and draped in a sterile fashion. After infiltration with local anesthetic a supraumbilical incision was made. A Veress needle was placed in position. The abdomen was insufflated. A 12 mm optical trocar was placed in position. Under direct visualization an additional 5 mm trocar was placed in the suprapubic region and an additional 5 mm trocar was placed on the left lower quadrant. The appendix was carefully elevated. Severe enlargement and significant inflammatory response noted. Adhesions to colon and small bowel confirmed. The mid/distal portion of the appendix was suppurative in nature. As the appendix was carefully elevated the mesoappendix was taken with harmonic muriel. No obvious injury to the colon or small bowel was noted. An Endopath 45 stapling device was then utilized to transect the appendix at its base. The appendix was placed in a retrieval bag and removed through the supraumbilical trocar site. The right lower quadrant and pelvis were irrigated. No pockets of purulence, bleeding, or other sign of injury noted. Pneumoperitoneum was released as the trocars were removed. The fascia at the supraumbilical trocar site was reapproximated with interrupted 0 Ethibond. All wounds were irrigated and skin was reapproximated with interrupted 4-0 Monocryl in a mattress fashion to facilitate hemostasis. Dressings were applied and the patient was extubated prior to being transferred to recovery. Condition: stable Disposition: PACU Specimens:: Appendix Complications:: No immediate
--- NOTE | 2023-07-17 14:27 | SUR.OPER ---
upon removal of the 18F coude catheter at end of case, observed was a small amount of red blood. 450ml removed total
--- NOTE | 2023-07-17 14:53 | SUR.PHASEI ---
1430 - Urine noted to be blood tinged w/ moderate size clot noted. PT still reports needs to void after voiding in urinal. Pt assisted to bathroom by staff and after voiding again states that he feels better, urine noted to be pink in color w/ 2 small clots. Color improved from first void. Dr Dimas notified of this. No new orders at this time. Prior to DC pt voided again, urine still blood tinged but still improved. Pt reports relief and no longer feeling as though he constantly has to pee. Pt educated on s/s of obstruction. Encouraged pt to drink plenty of fluids and advised to come back to ED if symptoms worsen.
[2023-07-17 16:59] LABS: Microscopic,Cath URINE MICROSCOPIC (MICROSCOPIC)
[2023-07-17 18:22] LABS: Appearance,Urine/Cath CLEAR (Clear); Bilirubin,Cath Negative (Negative); Blood, Urine/Cath TRACE-I (Negative); Color,Urine/Cath YELLOW (Yellow); Glucose,Urine/Cath (UA) Negative (Negative); Ketones,Urine/Cath Negative (Negative); Leukocyte Esterase,Cath Negative (Negative); Nitrate,Cath Negative (Negative); PH,Urine/Cath 8.5 (5.0-8.5); Protein,Urine/Cath Negative (Negative); Specific Gravity, Urine/Cath 1.015 (1.005-1.030); Urobilinogen,Cath 0.2 EU/dl (0.2)
[2023-07-17 18:50] LABS: Squamous Epithelial Ur./Cath Occasional #/hpf (0-5); WBC,Urine/Cath Occasional #/hpf (0-3)
--- NOTE | 2023-07-18 07:24 | EXP.ANES.II ---
[facility] Anesthesia Record Part II Anesthesia Record Part II Discharge Time: 14:44 Destination: Surgical Day Care (OP Surgery) PACU nurse assessment reviewed?: Yes Patient Condition:: Good Anesthesia Complications:: None Swallowing reflex intact?: Yes Airway Patency: Patent Cyanosis?: No Blood Pressure: 156/89 SaO2: 97 Respiratory Rate: 18 Pulse Rate: 83 Temperature: 97.9 F Mental Status: Alert & Oriented Pain level:: 0 Nausea and/or vomitting:: None Intake, IV Amount: 0 Hydration: Adequate
[2023-07-18 07:25] VITALS: BP 156/89; PULSE 83; RESP 18; TEMP 36.6; O2SAT 97
== END 2023-07-17 15:15 | disposition home or self-care (01) ==
LOC: ER 11:32 → SDC 14:24
PROVIDERS: Emergency Provider Student in an Organized Health Care Education/Training Program; PCP Internal Medicine Adolescent Medicine; Visit Provider Surgery
PROC: 0DTJ4ZZ Resection of Appendix, Percutaneous Endoscopic Approach (ICD-10-PCS; CPT 44970; principal; 2023-07-17 13:30)
DX: K35.80 Unspecified acute appendicitis (principal)
CPT/HCPCS: 44970; 74177; 80053; 81001; 85025; 88304; 96374; J0131; J0696; J2405; Q9967

== ENCOUNTER 2023-11-28 10:10 | Day surgery (SDC) | payer MEDICARE, OTHER, SELFPAY ==
[2023-11-28] MEDS: LACTATED RINGERS 1000ML 1,000 ML 25 ML IV (10:37)
[2023-11-28 10:42] VITALS: BP 147/85; PULSE 64; RESP 20; TEMP 36.2; O2SAT 97; BMI 27.8
--- NOTE | 2023-11-28 11:38 | P.PNANES_ITS ---
[facility] Disclaimer: The information contained in this section may have been updated after the patient was seen, as this information can be updated by other users. Medical History High blood pressure Inflammatory polyps Surgical History History of appendectomy Family History Other No significant family history Social History Smoking Status: Never smoker alcohol intake: never substance use type: denies use current occupational status: disabled Travel in the last 8 weeks: None household members: spouse current occupational exposures/hazards: No caffeine: Yes [facility] Anesthesia Checklist Patient Identification Patient Identification: Arm Band and Verbal (Name & ) Structural Data Admitted From: Home Planned Operative Procedure/s: EGD/Colonoscopy Consent for Planned Operative Procedure(s) Verified: Yes NPO Status Verified Time NPO: 00:00 Additional verifications Anesthesia Reactions: No Hx Blood Transfusions: No Blood Transfusion Reaction: No Airway Assessment Mallampati Score:: Class II C-Spine Mobility Assessed: Yes TMJ Mobility Assessed: Yes Dentition: Good Dentition Neurological Assessment Level of Consciousness: Awake Hx Seizures: No Numbness or tingling in extremities: No Anesthesia Plan Anesthesia Risk discussed: Yes Anesthesia Plan: Verified ASA Class: II Anesthesia Type: MAC
[2023-11-28 11:51] VITALS: O2SAT 97
--- NOTE | 2023-11-28 12:18 | HMH.SCOPE ---
Procedure: Date: 11/28/23 Patient Date of :: 1965 Procedure Performed:: Colonoscopy Indications:: The patient is a 58-year-old who presents for surveillance colonoscopy for a personal history of colon polyps. The patient's last colonoscopy was in 2020 with small adenomatous polyps removed from the colon. The patient has also alternating bowel habits. Performing Provider:: Aroldo Ambrose MD Referring Provider:: Deonte Barry MD Sedation:: See RN records Procedure:: After placing the patient in the left lateral decubitus position, the colonoscopy was gently inserted into the rectum and under direct visualization advanced to the cecum which was identified by transillumination in the right lower quadrant, identification of the ileocecal valve, appendiceal orifice, and cecal strap. Color, texture, mucosa, and anatomy of the colon were carefully examined with the scope. Findings:: The quality of the bowel preparation was poor in the cecum, ascending colon, transverse colon, and splenic flexure. Quality the bowel preparation in the remaining colon was fair. There were internal hemorrhoids seen on retroflexion view of the rectum Impression: Inadequate bowel preparation for detection of colon polyps Recommendations:: Recommend that patient have a repeat colonoscopy with 2 days liquid diet and extended bowel preparation Complications:: None Estimated blood obtained (mL): 0 Colonoscopy Component Colonoscopy Component Was a colonoscopy performed during today's procedure?: Yes Recommended follow up colonoscopy of at least 10 years?: Yes
[2023-11-28 12:19] VITALS: BP 121/68; PULSE 64; RESP 16; TEMP 36.3; O2SAT 96
--- NOTE | 2023-11-28 12:23 | HMH.SCOPE ---
Procedure: Date: 11/28/23 Patient Date of :: 1965 Procedure Performed:: EGD Indications:: The patient is a 58-year-old who presents for EGD evaluation of abdominal pain and dysphagia symptom Performing Provider:: Aroldo Ambrose MD Referring Provider:: Zeny Lehman APRN, gastroenterology Sedation:: See RN records Procedure:: The gastroscope was gently passed through the incisoral orifice into the oral cavity and under direct visualization the esophagus was intubated. The endoscope was passed down the esophagus, through the stomach, and into the duodenum. Color, texture, mucosa, and anatomy of the esophagus, stomach, and duodenum were carefully examined with the scope. Findings:: There was longitudinal furrowing of the mid to distal esophagus. Biopsies were obtained with a cold forceps for histology. Z-line was measured at 41 cm. There was mild inflammation of the gastric antrum and body characterized by erythema. Biopsies were taken with cold forceps for histology. The duodenum appeared normal. Biopsies were obtained with a cold forceps for histology. The gastroscope was withdrawn and dilation was then performed with a 56 [place] Freitas dilator Recommendations:: Await pathology results Follow-up in GI office as previously scheduled Complications:: None Estimated blood obtained (mL): 0 Colonoscopy Component Colonoscopy Component Was a colonoscopy performed during today's procedure?: No
[2023-11-28 12:29] VITALS: BP 112/75; PULSE 82; RESP 16; O2SAT 97
[2023-11-28 12:39] VITALS: BP 123/74; PULSE 64; RESP 16; O2SAT 98
== END 2023-11-28 12:45 | disposition home or self-care (01) ==
PROVIDERS: PCP Internal Medicine Adolescent Medicine; Visit Provider Internal Medicine
PROC: 0DJ08ZZ Inspection of Upper Intestinal Tract, Via Natural or Artificial Opening Endoscopic (ICD-10-PCS; CPT 43235; principal; 2023-11-28 11:30)
DX: Z12.11 Encounter for screening for malignant neoplasm of colon (principal); Z86.010 Personal history of colon polyps; Z91.199 Patient's noncompliance with other medical treatment and regimen due to unspecified reason; K64.8 Other hemorrhoids; R10.9 Unspecified abdominal pain; R13.10 Dysphagia, unspecified; K29.70 Gastritis, unspecified, without bleeding
CPT/HCPCS: 43239; 43248; G0105; 88305

== ENCOUNTER 2023-12-26 10:29 | Day surgery (SDC) | payer MEDICARE, OTHER, SELFPAY ==
[2023-12-25 13:19] VITALS: BMI 27.8
[2023-12-26] VITALS (7 sets, daily range): BP systolic 119–171; BP diastolic 69–88; PULSE 58–67; RESP 14–18; TEMP 36.6–37.1; O2SAT 95–98
[2023-12-26] MEDS: LACTATED RINGERS 1000ML 1,000 ML 25 ML IV (10:40)
--- NOTE | 2023-12-26 10:56 | EXP.ANES.CKL ---
[facility] Disclaimer: The information contained in this section may have been updated after the patient was seen, as this information can be updated by other users. Medical History GERD (gastroesophageal reflux disease) Inflammatory polyps High blood pressure Surgical History History of appendectomy Family History Other No significant family history Social History Smoking Status: Never smoker alcohol intake: never substance use type: denies use current occupational status: disabled Travel in the last 8 weeks: None household members: spouse current occupational exposures/hazards: No caffeine: Yes [facility] Anesthesia Checklist Patient Identification Patient Identification: Arm Band, Family and Verbal (Name & ) Structural Data Admitted From: Home Planned Operative Procedure/s: Colonoscopy Consent for Planned Operative Procedure(s) Verified: Yes Verified Documents: Surgical Consent and History and Physical NPO Status Verified Time NPO: 07:45 Chart Verification Results Verified: CBC, BMP, ECG and Chest Xray Additional verifications Patient : No Anesthesia Reactions: No Hx Blood Transfusions: No Blood Transfusion Reaction: No Cardiovascular Assessment Heart Sounds: S1 & S2 Pulse Rhythm: Irregular Peripheral Edema: No Airway Assessment Mallampati Score:: Class II C-Spine Mobility Assessed: Yes (FROM) TMJ Mobility Assessed: Yes Dentition: Good Dentition (Nothing loose per pt.) Neurological Assessment Level of Consciousness: Awake, Alert, Appropriate and Follows Commands Hx Seizures: No Numbness or tingling in extremities: No Anesthesia Plan Anesthesia Risk discussed: Yes Anesthesia Plan: Verified ASA Class: II Anesthesia Type: MAC
--- NOTE | 2023-12-26 11:23 | HMH.SCOPE ---
Procedure: Date: 12/26/23 Patient Date of :: 1965 Procedure Performed:: Colonoscopy Indications:: Patient is a 58-year-old who presents for surveillance colonoscopy for a history of colon polyps in the past. The patient recently had a colonoscopy with a poor bowel preparation. Performing Provider:: Aroldo Ambrose MD Referring Provider:: Deonte Barry MD Sedation:: See RN record Procedure:: After placing the patient in the left lateral decubitus position, the colonoscopy was gently inserted into the rectum and under direct visualization advanced to the cecum which was identified by transillumination in the right lower quadrant, identification of the ileocecal valve, appendiceal orifice, and cecal strap. Color, texture, mucosa, and anatomy of the colon were carefully examined with the scope. Findings:: The quality of the bowel preparation was good. The entire examined colon appeared normal. On retroflexion view of the rectum, internal hemorrhoids were seen. Impression: Normal appearing colon Hemorrhoids Recommendations:: Repeat colonoscopy in 5 years Complications:: None Estimated blood obtained (mL): 0 Colonoscopy Component Colonoscopy Component Was a colonoscopy performed during today's procedure?: Yes Recommended follow up colonoscopy of at least 10 years?: Yes
--- NOTE | 2023-12-26 11:28 | P.PNANES_ITS ---
[facility] Anesthesia Record Part I Anesthesia Record I Intake, IV Amount: 500 Hydration: Adequate Estimated blood loss (mL): 0 Urine output (mL): 0 Blood Products used (#): none Blood Pressure: 119/69 SaO2: 95 Pulse Rate: 61 Airway Patency: Patent Respiratory Rate: 16 Temperature: 97.9 F Patient is:: Drowsy and Stable Stable to PACU at:: 11:31
== END 2023-12-26 11:49 | disposition home or self-care (01) ==
PROVIDERS: PCP Internal Medicine Adolescent Medicine; Visit Provider Internal Medicine
PROC: 0DJD8ZZ Inspection of Lower Intestinal Tract, Via Natural or Artificial Opening Endoscopic (ICD-10-PCS; CPT G0105; principal; 2023-12-26 11:30)
DX: Z12.11 Encounter for screening for malignant neoplasm of colon (principal); Z86.010 Personal history of colon polyps; K64.8 Other hemorrhoids
CPT/HCPCS: G0105; J2704

== ENCOUNTER 2025-07-03 15:50 | Outpatient (CLI) | payer MEDICARE, SELFPAY ==
--- OUTSIDE RECORDS SUMMARY | 2025-07-03 15:53 | XMS_ITS | Encounter Summary ---
Author Organization Healthcare Address [address] [place] [address] Care Team Providers Care Private Branch Exchange Repairer Name Role Phone Unknown, Unknown Primary Care Provider Unavailab le Encounter Details Date Type Department Care Team (Late st Contact Info) Description 06/21/2022 Lab Requisition [facility] [address] [place] [address] Aarti Mackenzie MD [address] [facility] [address] [place] [id number] Infection following a procedure, unspecified, initial encounter Social History Tobacco Use Types Packs/Day Years Used Date Smoking Tobacco: Never Smokeless Tobacco: Never Alcohol Use Standard Drinks/Week Comments Never 0 (1 standard drink = 0.6 oz pur e alcohol) PHQ-2 Answer Date Recorded Patient Health Questionnaire-2 Score 4 06/08/2022 CAGE ASSESSMENT Answer Date Recorded Cage unable to access Not on file 06/13/2022 Cage max number of drinks Not on file 2021 Cage Beverages a week Not on file 06/13/2022 Have you ever felt you should CUT down on your d rinking? 0 06/13/2022 Have you been ANNOYED by people criticizing your drinking? 0 06/13/2022 Have you felt GUILTY about your drinking? 0 06/13/2022 Have you had a drink first t teresa in the morning (EYE-RN RELIEF CHARGE) to steady your nerves or to get rid of a hangover? 0 06/13/2022 CAGE Questionnaire Score 0 022 Sex and Gender Information Value Date Recorded Sex Assigned at Not on file Legal Sex Male 8:55 PM EDT Gender Identity Not on file Sexual Orientation Not on file COVID-19 Exposure Response Date Recorded In the last 10 days, have yo u been in contact with someone who was confirmed or suspected to have Coronavirus/COVID-19? No / Unsure 06/13/2022 3:56 PM EDT documented as of this encounter Plan of Treatment Not on file documented as of this encounter Procedures Procedure Name Priority Date/Time Associated Diagnosis Comments CREATINE KINASE, TOTAL, PLASMA Routine 06/21/2022 2:15 PM EDT Infection following a procedure, unspecified, initial encounter CBC WITH AUTO DIFFERENTIAL Routine 06/21/2022 2:15 PM EDT Infection following a procedure, unspecified, initial encounter C-REACTIVE PROTEIN, PLASMA Routine 06/21/2022 2:15 PM EDT Infection following a procedure, unspecified, initial encounter COMPREHENSIVE METABOLIC PANEL, PLASMA Routine 06/21/2022 2:15 PM EDT Infection following a procedure, unspecified, initial encounter documented in this encounter Results * Creatine Kinase (CK), Total (06/21/2022 2:15 PM EDT) Pathologist [facility] Creatine Kinase, Plasma 162 49 - 320 U/L 06/21/2022 6:02 PM EDT [facility] Blood Venous blood specimen / Unknown 06/21/2022 2:15 PM EDT 06/21/2022 5:23 PM EDT us Aarti Mackenzie MD LAB BLOOD ORDERABLES Final Resul t [facility] [address] [place] [address] * (ABNORMAL) CBC and Differential (06/21/2022 2:15 PM EDT) WBC Count 5.74 3.70 - 10.30 10*3/uL LAB HEMATOLOGY METHOD 06/21/2022 5:53 PM EDT [facility] RBC Count 4.79 4.60 - 6.10 10*6/uL LAB HEMATOLOGY METHOD 06/21/2022 5:53 PM EDT [facility] HGB 13.6(L) 13.7 - 17.5 g/dL LAB HEMATOLOGY METHOD 06/21/2022 5:53 PM EDT [facility] HCT 39.1(L) 40.0 - 51.0 % LAB HEMATOLOGY METHOD 06/21/2022 5:53 PM EDT [facility] Platelet Count 228 155 - 369 10*3/uL LAB HEMATOLOGY METHOD 06/21/2022 5:53 PM EDT [facility] MCV 82 79 - 98 fL LAB HEMATOLOGY METHOD 06/21/2022 5:53 PM EDT [facility] MCH 28.4 26.0 - 32.0 pg LAB HEMATOLOGY METHOD 06/21/2022 5:53 PM EDT [facility] MCHC 34.8 30.7 - 35.5 g/dL LAB HEMATOLOGY METHOD 06/21/2022 5:53 PM EDT [facility] RDW 12.6 11.5 - 14.5 % LAB HEMATOLOGY METHOD 06/21/2022 5:53 PM EDT [facility] MPV 9.2 8.8 - 12.5 fL LAB HEMATOLOGY METHOD 06/21/2022 5:53 PM EDT [facility] nRBC 0.0 <=0.0 per 100 WBCs LAB HEMATOLOGY METHOD 06/21/2022 5:53 PM EDT [facility] Differential Type Automated LAB HEMATOLOGY METHOD 06/21/2022 5:53 PM EDT [facility] Neutrophils % 53.0 % LAB HEMATOLOGY METHOD 06/21/2022 5:53 PM EDT [facility] Lymphocytes % 34.0 % LAB HEMATOLOGY METHOD 06/21/2022 5:53 PM EDT [facility] Monocytes % 11.0 % LAB HEMATOLOGY METHOD 06/21/2022 5:53 PM EDT [facility] Eosinophils % 1.0 % LAB HEMATOLOGY METHOD 06/21/2022 5:53 PM EDT [facility] Basophils % 0.0 % LAB HEMATOLOGY METHOD 06/21/2022 5:53 PM EDT [facility] Immature Granulocytes % 1.0 % LAB HEMATOLOGY METHOD 06/21/2022 5:53 PM EDT [facility] Neutrophils Absolute 3.08 1.60 - 6.10 10*3/uL LAB HEMATOLOGY METHOD 06/21/2022 5:53 PM EDT [facility] Lymphocytes Absolute 1.96 1.20 - 3.90 10*3/uL LAB HEMATOLOGY METHOD 06/21/2022 5:53 PM EDT [facility] Monocytes Absolute 0.61 0.30 - 0.90 10*3/uL LAB HEMATOLOGY METHOD 06/21/2022 5:53 PM EDT [facility] Eosinophils Absolute 0.04 0.00 - 0.50 10*3/uL LAB HEMATOLOGY METHOD 06/21/2022 5:53 PM EDT [facility] Basophils Absolute 0.01 0.00 - 0.10 10*3/uL LAB HEMATOLOGY METHOD 06/21/2022 5:53 PM EDT [facility] Immature Granulocytes Absolute 0.04 0.00 - 0.06 10*3/uL LAB HEMATOLOGY METHOD 06/21/2022 5:53 PM EDT [facility] Blood Venous blood specimen / Unknown 06/21/2022 2:15 PM EDT 06/21/2022 5:23 PM EDT Narrative [facility] - 06/21/2022 5:53 PM EDT Therapeutic decision making should be based on absolute values, rather than percentages. us Aarti Macknezie MD LAB BLOOD ORDERABLES Final Resul t [facility] [address] [place] [address] * C-reactive protein (06/21/2022 2:15 PM EDT) CRP, Plasma <3.0 <=8.0 mg/L 06/21/2022 6:02 PM EDT [facility] Blood Venous blood specimen / Unknown 06/21/2022 2:15 PM EDT 06/21/2022 5:23 PM EDT Narrative [facility] - 06/21/2022 6:02 PM EDT This CRP test is appropriate for assessment of infection, systemic inflammation and/or tissue injury. To assess cardiovascular disease risk order high sensitivity CRP (CRPH). us Aarti Mackenzie MD LAB BLOOD ORDERABLES Final Resul t [facility] [address] [place] [address] * (ABNORMAL) Comprehensive metabolic panel (06/21/2022 2:15 PM EDT) [facility] Glucose, Plasma 92 74 - 99 mg/dL 06/21/2022 6:02 PM EDT [facility] BUN, Plasma 10 7 - 21 mg/dL 06/21/2022 6:02 PM EDT [facility] Creatinine, Plasma 1.01 0.80 - 1.30 mg/dL 06/21/2022 6:02 PM EDT [facility] BUN/Creatinine Ratio 10 06/21/2022 6:02 PM EDT [facility] Sodium, Plasma 142 136 - 145 mmol/L 06/21/2022 6:02 PM EDT [facility] Potassium, Plasma 3.3(L) 3.7 - 4.8 mmol/L 06/21/2022 6:02 PM EDT [facility] Comment:Reference range for Serum potassium is 0.2 to 0.5 mmol/L higher than Plasma range. Chloride, Plasma 104 97 - 107 mmol/L 06/21/2022 6:02 PM EDT [facility] CO2, Plasma 26 22 - 29 mmol/L 06/21/2022 6:02 PM EDT [facility] Anion Gap 12 6 - 16 mmol/L 06/21/2022 6:02 PM EDT [facility] Total Calcium, Plasma 9.4 8.9 - 10.2 mg/dL 06/21/2022 6:02 PM EDT [facility] Total Protein 7.1 6.3 - 7.9 g/dL 06/21/2022 6:02 PM EDT [facility] Albumin, Plasma 5.0 3.5 - 5.2 g/dL 06/21/2022 6:02 PM EDT [facility] AST, Plasma 19 12 - 40 U/L 06/21/2022 6:02 PM EDT [facility] ALT, Plasma 36 11 - 41 U/L 06/21/2022 6:02 PM EDT [facility] Alkaline Phosphatase, Plasma 75 40 - 115 U/L 06/21/2022 6:02 PM EDT [facility] Total Bilirubin, Plasma 0.6 0.2 - 1.1 mg/dL 06/21/2022 6:02 PM EDT [facility] eGFRcr 86.7 mL/min/1.7 3m*2 06/21/2022 6:02 PM EDT [facility] Comment: Reported eGFRcr in mL/min/1.73m2 is based the CKD-EPI 202 equation that does not use a race coefficient. Effective 04/26/22 our laboratory changed the eGFR calculation to the CKD-EPI 2021 equation from the previously reported eGFR, based on the MDRD equation. For comparisons between the two equations, please see laboratory website: [email or web address] Blood Venous blood specimen / Unknown 06/21/2022 2:15 PM EDT 06/21/2022 5:23 PM EDT us Aarti Mackenzie MD LAB BLOOD ORDERABLES Final Resul t [facility] [address] [place] [address] documented in this encounter Visit Diagnoses Diagnosis Infection following a procedure, unspecified, initial encounter documented in this encounter Additional Health Concerns Infection Onset Date Last Indicated Resolved Time MRSA 05/29/2022 06/13/2022 Assessment Noted Time PHQ-9 Depression Total Score: 16 022 1:46 PM EDT A fall risk assessment has been complete d for the patient 06/08/2022 1:46 PM EDT documented as of this encounter Care Teams Private Branch Exchange Repairer Relationship Specialty Start Date End Date Unknown, Unknown [place], [place] PCP - General 07/12/21 documented as of this encounter
--- OUTSIDE RECORDS SUMMARY | 2025-07-03 15:53 | XMS_ITS | Clinical Summary ---
Author Organization [facility] Address [address] [place] [address] Care Team Providers Care Restorer Paper And Prints Name Role Phone Unknown, Unknown Primary Care Provider Unavailab le Allergies No known active allergies Medications gabapentin (Neurontin) 600 MG tablet Take 600 mg by mouth 3 (three) times a day. Active traZODone (Desyrel) 100 MG tablet Take 100 mg by mouth every night. 04/18/2022 Active tamsulosin (Flomax) 0.4 MG 24 hr capsule Take 0.4 mg by mouth every night. 04/18/2022 Active acetaminophen (Tylenol) 500 MG tablet Take 2 tablets (1,000 mg total) by mouth every 6 (six) hours if needed for pain. 30 tablet 05/12/2022 Active Active Problems Problem Noted Date Diagnosed Date Infection of deep incisional surgical site after procedure 06/13/2022 Overview (06/13/2022): Added automatically from request for surgery [id number] Postoperative infection, uns pecified type, initial encounter 06/13/2022 Hand pain, right 07/18/2021 Displaced fracture of proxim al phalanx of right middle finger, initial encounter for closed fracture 07/18/2021 Social History Tobacco Use Types Packs/Day Years Used Date Smoking Tobacco: Never Smokeless Tobacco: Never Tobacco Cessation:Counseling Given: Not Answered Alcohol Use Standard Drinks/Week Comments Never 0 [...] drink first t teresa in the morning (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 0 06/13/2022 CAGE Questionnaire Score 0 022 Sex and Gender Information Value Date Recorded Sex Assigned at Not on file Legal Sex Male 8:55 PM EDT Gender Identity Not on file Sexual Orientation Not on file Last Filed Vital Signs Vital Sign Reading Time Taken Comments Blood Pressure 141/87 07/27/2022 9:32 AM EDT Pulse 65 07/27/2022 9:32 AM EDT Temperature 36.6 C (97.9 F) 07/20/2022 2:23 PM EDT Respiratory Rate 16 06/16/2022 7:27 AM EDT Oxygen Saturation 97% 07/27/2022 9:32 AM EDT Inhaled Oxygen Concentration - - Weight 90.7 kg (200 lb) 07/27/2022 9:32 AM EDT Height 180.3 cm (5' 11 ) 07/27/2022 9:32 AM EDT Body Mass Index 27.89 07/27/2022 9:32 AM EDT Plan of Treatment Health Maintenance Due Date Last Done Comments [facility]-Medicare Annual Wellness (AWV) 1965 [facility]-/Child/Adol SDOH Screenings 1965 [facility]- SDOH Screenings 1983 [facility]-Adult SDOH Screenings 1983 [facility]-DTaP,Tdap,and Td Vaccines (1 - Tdap) 01/02/1984 CT Colonography 2010 Colonoscopy 2010 FIT-DNA 2010 FIT 2010 FOBT 2010 Sigmoidoscopy 2010 [facility]-Colorectal Cancer Screening 2010 [facility]-Pneumococcal Vaccine: 50+ Years (1 of 1 - PCV) 2015 [facility]-Zoster Vaccines (1 of 2) 2015 [facility]-Depression Screening 06/08/2023 06/08/2022, 05/2022 [id number] Vaccine ( - 2023- season) 2025 [facility]-Influenza Vaccine (#1) 2025 [facility]-RSV Vaccine: 60+ Years or (1 - 1-dose 75+ series) 01/02/2040 [facility]-HIV Screening Completed 06/14/2022 [facility]-Hepatitis C Screening Completed 06/14/2022 [facility]-Obesity Intervention Completed 022, 07/20/2022, 07/13/2022, Additional history exists HPV Vaccines Aged Out No longer eligi ble based on patient's age to complete this topic [facility]-HIB Vaccines Aged Out No longer e ligible based on patient's age to complete this topic [facility]-Hepatitis A Vaccines Aged Out No longer eligible based on patient's age to complete this topic [facility]-IPV Vaccines Aged Out No longer e ligible based on patient's age to complete this topic [facility]-Rotavirus Vaccines Aged Out No lo nger eligible based on patient's age to complete this topic Goals Goal Patient Goal Type Associated Problems Recent Progress Patient-Stated? Author LTG OT Impaired Function: Patient will decrease QUICK DASH score to less than 25% by discharge. Occupational Therapy Improving( 10:25 AM EDT) No Hernandez Peter STG OT: Pt will demonstrate independence with edema control and scar managment techniques within 3 weeks. Occupational Therapy Improving( 10:25 AM EDT) No Hernandez Peter ROM: Patient will demonstrate ability to perform flat fist to within 1.5 cm of DPC for increased participation in ADL's by discharge. Occupational Therapy Improving( 10:25 AM EDT) No Hernandez Peter LTG OT: Pt will demonstrate increased hazardous materials handler strength to at least 50% of unaffected side by discharge. Occupational Therapy Improving( 10:25 AM EDT) No Hernandez Peter Pain: Patient will report a pain score of less than 2/10 within 4 weeks. Occupational Therapy Improving( 10:25 AM EDT) No Hernandez Peter Medical Devices Implanted Type Area Assistant Art Director Device Identifier Shelf Expiration Date Model / Serial / Lot Knee Knee Left: Knee Procedures Procedure Name Priority Date/Time Associated Diagnosis Comments HEPATITIS C ANTIBODY W/REFLEX TO HCV QUANT PCR Routine 06/14/2022 1:53 PM EDT HIV 1/2 ANTIBODY/ANTIGEN SCREEN WITH REFLEX TO HIV I/II DIFFERENTIATION Routine 06/14/2022 1:53 PM EDT from Last 3 Months or Most Recently Relevant to Health Maintenance Results * HIV 1 & 2 Antibody/Antigen Screen (06/14/2022 1:53 PM EDT) HIV 1 & 2 Antibody/Anti gen Screen Nonreactive Nonreactive 06/14/2022 4:35 PM EDT [facility] Blood Venous blood specimen / Unknown Venipuncture / Unknown 06/14/2022 1:53 PM EDT 06/14/2022 2:01 PM EDT Brian Portillo BEEF CATTLE GRAZIER LAB BLOOD ORDERABLES Jasmina l Result Performing Organization Address City/[facility]/ZIP Co de Phone Number [facility] [address] [place] [address] * Hepatitis C Antibody (06/14/2022 1:53 PM EDT) Pathologist [facility] Hepatitis C Antibody Negative Negative 06/14/2022 4:35 PM EDT [facility] Blood Venous blood specimen / Unknown Venipuncture / Unknown 06/14/2022 1:53 PM EDT 06/14/2022 2:01 PM EDT Brian Portillo BEEF CATTLE GRAZIER LAB BLOOD ORDERABLES Jasmina l Result [facility] [address] [place] [address] from Last 3 Months or Most Recently Relevant to Health Maintenance Additional Health Concerns Infection Onset Date Last Indicated MRSA 05/29/2022 06/13/2022 Insurance [employer] [facility] [place] [address] Advance Directives * Full Code (Latest Code Status on File) Date Activated Date Inactivated Comments 06/13/2022 5:11 PM 06/16/2022 8:08 PM Question Answer Comments Patient has decision-making capacity? Yes Care Teams Restorer Paper And Prints Relationship Specialty Start Date End Date Unknown, Unknown LISA Bearden PCP - General 07/12/21
--- OUTSIDE RECORDS SUMMARY | 2025-07-03 15:53 | XMS_ITS | Clinical Summary ---
Author Organization [facility] Address [address] [place] [address] Care Team Providers Care Instructor Watch Assembly Name Role Phone Felicita Colin MD Primary Care Provider Livier vailable Social History Tobacco Use Types Packs/Day Years Used Date Smoking Tobacco: Never Assessed Abuse Screen Answer Date Recorded Unsafe at Home or Work/School Not on file Feels Threatened by Someone? Not on file 06/2023 Does Anyone Keep You from Co ntacting Others or Doint Things Outside the Home? Not on file 07/09/2023 Physical Sign of Abuse Present Not on file 1 Housing Stability Answer Date Recorded Current Living Arrangements Not on file 06/2023 Potentially Unsafe Housing Conditions Not on evette e 07/09/2023 Family and Community Support Answer Leeroy e Recorded Help with Day-to-Day Activities Not on file 07/09/2023 Lonely or Isolated Not on file 07/09/2023 Employment Answer Date Recorded Do you want help finding or keeping work or a jeremías b? Not on file 07/09/2023 Disabilities Answer Date Recorded Concentrating, Remembering, or Making Decisions Difficulty Not on file 07/09/2023 Doing Errands Independently Difficulty Not on fi le 07/09/2023 Education Answer Date Recorded Help with school or training? Not on file Preferred Language Not on file 07/09/2023 Sex and Gender Information Value Date Recorded Sex Assigned at Not on file Legal Sex Male 11:07 AM EDT Gender Identity Not on file Sexual Orientation Not on file Plan of Treatment Health Maintenance Due Date Last Done Comments ANNUAL PHYSICAL 1965 HEPATITIS C SCREENING 1965 TDAP/TD VACCINES (1 - Tdap) 01/02/1984 COLOGUARD 2010 COLON CANCER SCREENING 5 YEAR SIGMOIDOSCOPY 2010 COLONOSCOPY 2010 [address] CANCER SCREENING 2010 CT COLONOGRAPHY 2010 FECAL OCCULT BLOOD TEST 2010 FIT Testing (1 year) 2010 Pneumococcal Vaccine 50+ (1 of 1 - PCV) 2015 ZOSTER VACCINE (1 of 2) 2015 INFLUENZA VACCINE 05/01/2025 Care Teams Instructor Watch Assembly Relationship Specialty Start Date End Date Felicita Colin MD PCP - General 07/28/15
--- OUTSIDE RECORDS SUMMARY | 2025-07-03 15:54 | XMS_ITS | Encounter Summary ---
Author Organization Healthcare Address [address] [place] [address] Care Team Providers Care Electric Motor Tester Name Role Phone Unknown, Unknown Primary Care Provider Unavailab le Encounter Details Date Type Department Care Team (Late st Contact Info) Description 06/29/2022 Lab Requisition [facility] [address] [place] [address] Aarti Mackenzie MD [address] 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 No / Unsure 06/29/2022 10:54 AM EDT documented as of this encounter Plan of Treatment Not on file documented as of this encounter Procedures Procedure Name Priority Date/Time Associated Diagnosis Comments CREATINE KINASE, TOTAL, PLASMA Routine 06/29/2022 2:00 PM EDT Infection following a procedure, unspecified, initial encounter Infection following a procedure, deep incisional surgical site, initial encounter CBC WITH AUTO DIFFERENTIAL Routine 06/29/2022 2:00 PM EDT Infection following a procedure, unspecified, initial encounter Infection following a procedure, deep incisional surgical site, initial encounter C-REACTIVE PROTEIN, PLASMA Routine 06/29/2022 2:00 PM EDT Infection following a procedure, unspecified, initial encounter Infection following a procedure, deep incisional surgical site, initial encounter HCG, QUANTITATIVE Routine 06/29/2022 2:0 0 PM EDT Infection following a procedure, unspecified, initial encounter Infection following a procedure, deep incisional surgical site, initial encounter COMPREHENSIVE METABOLIC PANEL, PLASMA Routine 06/29/2022 2:00 PM EDT Infection following a procedure, unspecified, initial encounter Infection following a procedure, deep incisional surgical site, initial encounter documented in this encounter Results * (ABNORMAL) CBC and Differential (06/29/2022 2:00 PM EDT) WBC Count 5.54 3.70 - 10.30 10*3/uL LAB HEMATOLOGY METHOD 06/29/2022 3:12 PM EDT [facility] RBC Count 4.66 4.60 - 6.10 10*6/uL LAB HEMATOLOGY METHOD 06/29/2022 3:12 PM EDT [facility] HGB 13.4(L) 13.7 - 17.5 g/dL LAB HEMATOLOGY METHOD 06/29/2022 3:12 PM EDT [facility] HCT 38.7(L) 40.0 - 51.0 % LAB HEMATOLOGY METHOD 06/29/2022 3:12 PM EDT [facility] Platelet Count 213 155 - 369 10*3/uL LAB HEMATOLOGY METHOD 06/29/2022 3:12 PM EDT [facility] MCV 83 79 - 98 fL LAB HEMATOLOGY METHOD 06/29/2022 3:12 PM EDT [facility] MCH 28.8 26.0 - 32.0 pg LAB HEMATOLOGY METHOD 06/29/2022 3:12 PM EDT [facility] MCHC 34.6 30.7 - 35.5 g/dL LAB HEMATOLOGY METHOD 06/29/2022 3:12 PM EDT [facility] RDW 13.0 11.5 - 14.5 % LAB HEMATOLOGY METHOD 06/29/2022 3:12 PM EDT [facility] MPV 9.2 8.8 - 12.5 fL LAB HEMATOLOGY METHOD 06/29/2022 3:12 PM EDT [facility] nRBC 0.0 <=0.0 per 100 WBCs LAB HEMATOLOGY METHOD 06/29/2022 3:12 PM EDT [facility] Differential Type Automated LAB HEMATOLOGY METHOD 06/29/2022 3:12 PM EDT [facility] Neutrophils % 48.0 % LAB HEMATOLOGY METHOD 06/29/2022 3:12 PM EDT [facility] Lymphocytes % 42.0 % LAB HEMATOLOGY METHOD 06/29/2022 3:12 PM EDT [facility] Monocytes % 8.0 % LAB HEMATOLOGY METHOD 06/29/2022 3:12 PM EDT [facility] Eosinophils % 1.0 % LAB HEMATOLOGY METHOD 06/29/2022 3:12 PM EDT [facility] Basophils % 1.0 % LAB HEMATOLOGY METHOD 06/29/2022 3:12 PM EDT [facility] Immature Granulocytes % 0.0 % LAB HEMATOLOGY METHOD 06/29/2022 3:12 PM EDT [facility] Neutrophils Absolute 2.68 1.60 - 6.10 10*3/uL LAB HEMATOLOGY METHOD 06/29/2022 3:12 PM EDT [facility] Lymphocytes Absolute 2.32 1.20 - 3.90 10*3/uL LAB HEMATOLOGY METHOD 06/29/2022 3:12 PM EDT [facility] Monocytes Absolute 0.43 0.30 - 0.90 10*3/uL LAB HEMATOLOGY METHOD 06/29/2022 3:12 PM EDT [facility] Eosinophils Absolute 0.06 0.00 - 0.50 10*3/uL LAB HEMATOLOGY METHOD 06/29/2022 3:12 PM EDT [facility] Basophils Absolute 0.03 0.00 - 0.10 10*3/uL LAB HEMATOLOGY METHOD 06/29/2022 3:12 PM EDT [facility] Immature Granulocytes Absolute 0.02 0.00 - 0.06 10*3/uL LAB HEMATOLOGY METHOD 06/29/2022 3:12 PM EDT [facility] Blood 06/29/2022 2:00 PM EDT 06/29/2022 3:06 PM EDT Narrative [facility] - 06/29/2022 3:12 PM EDT Therapeutic decision making should be based on absolute values, rather than percentages. us Aarti Mackenzie MD LAB BLOOD ORDERABLES Final Resul t [facility] [address] [place] [address] * Creatine Kinase (CK), Total (06/29/2022 2:00 PM EDT) Creatine Kinase, Plasma 268 49 - 320 U/L 06/29/2022 3:38 PM EDT [facility] Blood Venous blood specimen / Unknown 06/29/2022 2:00 PM EDT 06/29/2022 3:06 PM EDT us Aarti Mackenzie MD LAB BLOOD ORDERABLES Final Resul t [facility] [address] [place] [address] * hCG, Total Beta, Quantitative, Plasma (06/29/2022 2:00 PM EDT) hCG, Total Beta <1 <5 mIU/mL 06/29/2022 3:38 PM EDT [facility] Blood Venous blood specimen / Unknown 06/29/2022 2:00 PM EDT 06/29/2022 3:06 PM EDT Narrative [facility] - 06/29/2022 3:38 PM EDT Patients: Normal Range Premenopausal Female < 5 mIU/mL Male < 3 mIU/mL Postmenopausal Female < 8 mIU/mL The Owen Elecsys hCG+beta assay is standardized to the 4th IS for Chorionic Gonadotropin. The combination of the specific monoclonal antibodies used in this assay recognizes the holo-hormone, nicked forms of hCG, the Beta-core Fragment and the free beta-subunit. Elevated hCG concentrations not associated with are found in patients with gestational trophoblastic disease and choriocarcinoma as well as germ cell, ovarian, bladder, pancreas, stomach, lung and liver tumors. Performed by the Owen electrochemiluminescent immunoassay which is traceable to the 4th International Standard for hCG (NIBSC 75/589). Results obtained with different test methods or kits cannot be used interchangeably. us Aarti Mackenzie MD LAB BLOOD ORDERABLES Final Resul t Performing Organization Address [facility] Co de Phone Number [facility] [address] [place] [address] * C-reactive protein (06/29/2022 2:00 PM EDT) CRP, Plasma <3.0 <=8.0 mg/L 06/29/2022 3:38 PM EDT [facility] Blood Venous blood specimen / Unknown 06/29/2022 2:00 PM EDT 06/29/2022 3:06 PM EDT Narrative [facility] - 06/29/2022 3:38 PM EDT This CRP test is appropriate for assessment of infection, systemic inflammation and/or tissue injury. To assess cardiovascular disease risk order high sensitivity CRP (CRPH). us Aarti Mackenzie MD LAB BLOOD ORDERABLES Final Resul t Performing Organization Address City/[facility] Co de Phone Number [facility] [address] [place] [address] * (ABNORMAL) Comprehensive metabolic panel (06/29/2022 2:00 PM EDT) Glucose, Plasma 127(H) 74 - 99 mg/dL 06/29/2022 3:38 PM EDT [facility] BUN, Plasma 8 7 - 21 mg/dL 06/29/2022 3:38 PM EDT [facility] Creatinine, Plasma 0.93 0.80 - 1.30 mg/dL 06/29/2022 3:38 PM EDT [facility] BUN/Creatinine Ratio 9 06/29/2022 3:38 PM EDT [facility] Sodium, Plasma 140 136 - 145 mmol/L 06/29/2022 3:38 PM EDT [facility] Potassium, Plasma 3.8 3.7 - 4.8 mmol/L 06/29/2022 3:38 PM EDT [facility] Comment:Reference range for Serum potassium is 0.2 to 0.5 mmol/L higher than Plasma range. Chloride, Plasma 105 97 - 107 mmol/L 06/29/2022 3:38 PM EDT [facility] CO2, Plasma 25 22 - 29 mmol/L 06/29/2022 3:38 PM EDT [facility] Anion Gap 10 6 - 16 mmol/L 06/29/2022 3:38 PM EDT [facility] Total Calcium, Plasma 9.4 8.9 - 10.2 mg/dL 06/29/2022 3:38 PM EDT [facility] Total Protein 7.2 6.3 - 7.9 g/dL 06/29/2022 3:38 PM EDT [facility] Albumin, Plasma 4.6 3.5 - 5.2 g/dL 06/29/2022 3:38 PM EDT [facility] AST, Plasma 28 12 - 40 U/L 06/29/2022 3:38 PM EDT [facility] ALT, Plasma 35 11 - 41 U/L 06/29/2022 3:38 PM EDT [facility] Alkaline Phosphatase, Plasma 73 40 - 115 U/L 06/29/2022 3:38 PM EDT [facility] Total Bilirubin, Plasma 0.3 0.2 - 1.1 mg/dL 06/29/2022 3:38 PM EDT [facility] eGFRcr 95.8 mL/min/1.7 3m*2 06/29/2022 3:38 PM EDT [facility] Comment: Reported eGFRcr in mL/min/1.73m2 is based the CKD-EPI 2020 equation that does not use a race coefficient. Effective 04/26/22 our laboratory changed the eGFR calculation to the CKD-EPI 2020 equation from the previously reported eGFR, based on the MDRD equation. For comparisons between the two equations, please see laboratory website: [email or web address] Blood Venous blood specimen / Unknown 06/29/2022 2:00 PM EDT 06/29/2022 3:06 PM EDT us Aarti Mackenzie MD LAB BLOOD ORDERABLES Final Resul t [facility] [address] [place] [address] documented in this encounter Visit Diagnoses Diagnosis Infection following a procedure, unspecified, initial encounter Infection following a procedure, deep incisional surgical site, initial encounter documented in this encounter Additional Health Concerns Infection Onset Date Last Indicated Resolved Time MRSA 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
--- OUTSIDE RECORDS SUMMARY | 2025-07-03 15:54 | XMS_ITS | Encounter Summary ---
Author Organization Healthcare Address [address] [place] [address] Care Team Providers Care Special Education Associate Name Role Phone Unknown, Unknown Primary Care Provider Unavailab le Encounter Details Date Type Department Care Team (Late st Contact Info) Description 07/17/2022 Lab Requisition [facility] [address] [place] [address] Aarti Mackenzie MD [address] 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 No / Unsure 07/20/2022 2:02 PM EDT documented as of this encounter Plan of Treatment Not on file documented as of this encounter Goals Goal Patient Goal Type Associated Problems [...] Peter LTG OT: Pt will demonstrate increased order clerk strength to at least 50% of unaffected side by discharge. Occupational Therapy Improving( 10:25 AM EDT) No Hernandez Peter Pain: Patient will report a pain score of less than 2/10 within 4 weeks. Occupational Therapy Improving( 10:25 AM EDT) No Hernandez Peter documented as of this encounter Procedures Procedure Name Priority Date/Time Associated Diagnosis Comments CREATINE KINASE, TOTAL, PLASMA Routine 07/17/2022 11:00 AM EDT Infection following a procedure, unspecified, initial encounter CBC WITH AUTO DIFFERENTIAL Routine 07/17/2022 11:00 AM EDT Infection following a procedure, unspecified, initial encounter COMPREHENSIVE METABOLIC PANEL, PLASMA Routine 07/17/2022 11:00 AM EDT Infection following a procedure, unspecified, initial encounter documented in this encounter Results * (ABNORMAL) CBC and Differential (07/17/2022 11:00 AM EDT) [facility] WBC Count 5.02 3.70 - 10.30 10*3/uL LAB HEMATOLOGY METHOD 07/17/2022 3:08 PM EDT [facility] RBC Count 4.32(L) 4.60 - 6.10 10*6/uL LAB HEMATOLOGY METHOD 07/17/2022 3:08 PM EDT [facility] HGB 12.4(L) 13.7 - 17.5 g/dL LAB HEMATOLOGY METHOD 07/17/2022 3:08 PM EDT [facility] HCT 36.3(L) 40.0 - 51.0 % LAB HEMATOLOGY METHOD 07/17/2022 3:08 PM EDT [facility] Platelet Count 203 155 - 369 10*3/uL LAB HEMATOLOGY METHOD 07/17/2022 3:08 PM EDT [facility] MCV 84 79 - 98 fL LAB HEMATOLOGY METHOD 07/17/2022 3:08 PM EDT [facility] MCH 28.7 26.0 - 32.0 pg LAB HEMATOLOGY METHOD 07/17/2022 3:08 PM EDT [facility] MCHC 34.2 30.7 - 35.5 g/dL LAB HEMATOLOGY METHOD 07/17/2022 3:08 PM EDT [facility] RDW 13.3 11.5 - 14.5 % LAB HEMATOLOGY METHOD 07/17/2022 3:08 PM EDT [facility] MPV 9.7 8.8 - 12.5 fL LAB HEMATOLOGY METHOD 07/17/2022 3:08 PM EDT [facility] nRBC 0.0 <=0.0 per 100 WBCs LAB HEMATOLOGY METHOD 07/17/2022 3:08 PM EDT [facility] Differential Type Automated LAB HEMATOLOGY METHOD 07/17/2022 3:08 PM EDT [facility] Neutrophils % 55.0 % LAB HEMATOLOGY METHOD 07/17/2022 3:08 PM EDT [facility] Lymphocytes % 33.0 % LAB HEMATOLOGY METHOD 07/17/2022 3:08 PM EDT [facility] Monocytes % 10.0 % LAB HEMATOLOGY METHOD 07/17/2022 3:08 PM EDT [facility] Eosinophils % 1.0 % LAB HEMATOLOGY METHOD 07/17/2022 3:08 PM EDT [facility] Basophils % 0.0 % LAB HEMATOLOGY METHOD 07/17/2022 3:08 PM EDT [facility] Immature Granulocytes % 1.0 % LAB HEMATOLOGY METHOD 07/17/2022 3:08 PM EDT [facility] Neutrophils Absolute 2.73 1.60 - 6.10 10*3/uL LAB HEMATOLOGY METHOD 07/17/2022 3:08 PM EDT [facility] Lymphocytes Absolute 1.66 1.20 - 3.90 10*3/uL LAB HEMATOLOGY METHOD 07/17/2022 3:08 PM EDT [facility] Monocytes Absolute 0.52 0.30 - 0.90 10*3/uL LAB HEMATOLOGY METHOD 07/17/2022 3:08 PM EDT [facility] Eosinophils Absolute 0.04 0.00 - 0.50 10*3/uL LAB HEMATOLOGY METHOD 07/17/2022 3:08 PM EDT [facility] Basophils Absolute 0.02 0.00 - 0.10 10*3/uL LAB HEMATOLOGY METHOD 07/17/2022 3:08 PM EDT [facility] Immature Granulocytes Absolute 0.05 0.00 - 0.06 10*3/uL LAB HEMATOLOGY METHOD 07/17/2022 3:08 PM EDT [facility] Blood Venous blood specimen / Unknown 07/17/2022 11:00 AM EDT 07/17/2022 2:02 PM EDT Narrative [facility] - 07/17/2022 3:08 PM EDT Therapeutic decision making should be based on absolute values, rather than percentages. us Aarti Mackenzie MD LAB BLOOD ORDERABLES Final Resul t Performing Organization Address City/[facility]/ZIP Co de Phone Number [facility] [address] [place] [address] * (ABNORMAL) Creatine Kinase (CK), Total (07/17/2022 11:00 AM EDT) Creatine Kinase, Plasma 490(H) 49 - 320 U/L 07/17/2022 3:28 PM EDT [facility] Blood Venous blood specimen / Unknown 07/17/2022 11:00 AM EDT 07/17/2022 2:02 PM EDT us Aarti Mackenzie MD LAB BLOOD ORDERABLES Final Resul t Performing Organization Address City/[facility]/ZIP Co de Phone Number [facility] [address] [place] [address] * (ABNORMAL) Comprehensive metabolic panel (07/17/2022 11:00 AM EDT) [facility] Glucose, Plasma 98 74 - 99 mg/dL 07/17/2022 3:28 PM EDT [facility] BUN, Plasma 12 7 - 21 mg/dL 07/17/2022 3:28 PM EDT [facility] Creatinine, Plasma 0.86 0.80 - 1.30 mg/dL 07/17/2022 3:28 PM EDT [facility] BUN/Creatinine Ratio 14 07/17/2022 3:28 PM EDT [facility] Sodium, Plasma 142 136 - 145 mmol/L 07/17/2022 3:28 PM EDT [facility] Potassium, Plasma 3.8 3.7 - 4.8 mmol/L 07/17/2022 3:28 PM EDT [facility] Comment:Reference range for Serum potassium is 0.2 to 0.5 mmol/L higher than Plasma range. Chloride, Plasma 108(H) 97 - 107 mmol/L 07/17/2022 3:28 PM EDT [facility] CO2, Plasma 23 22 - 29 mmol/L 07/17/2022 3:28 PM EDT [facility] Anion Gap 11 6 - 16 mmol/L 07/17/2022 3:28 PM EDT [facility] Total Calcium, Plasma 9.0 8.9 - 10.2 mg/dL 07/17/2022 3:28 PM EDT [facility] Total Protein 6.9 6.3 - 7.9 g/dL 07/17/2022 3:28 PM EDT [facility] Albumin, Plasma 4.6 3.5 - 5.2 g/dL 07/17/2022 3:28 PM EDT [facility] AST, Plasma 29 12 - 40 U/L 07/17/2022 3:28 PM EDT [facility] ALT, Plasma 38 11 - 41 U/L 07/17/2022 3:28 PM EDT [facility] Alkaline Phosphatase, Plasma 70 40 - 115 U/L 07/17/2022 3:28 PM EDT [facility] Total Bilirubin, Plasma 0.3 0.2 - 1.1 mg/dL 07/17/2022 3:28 PM EDT [facility] eGFRcr 101.0 mL/min/1.7 3m*2 07/17/2022 3:28 PM EDT [facility] Comment: Reported eGFRcr in mL/min/1.73m2 is based the CKD-EPI 2021 equation that does not use a race coefficient. Effective 04/26/22 our laboratory changed the eGFR calculation to the CKD-EPI 2021 equation from the previously reported eGFR, based on the MDRD equation. For comparisons between the two equations, please see laboratory website: [email or web address] Blood Venous blood specimen / Unknown 07/17/2022 11:00 AM EDT 07/17/2022 2:02 PM EDT us Aarti Mackenzie MD LAB BLOOD ORDERABLES Final Resul t [facility] [address] [place] [address] documented in this encounter Visit Diagnoses Diagnosis [...] documented as of this encounter Care Teams Special Education Associate Relationship Specialty Start Date End Date Unknown, Unknown [place], [place] PCP - General 07/12/21 documented as of this encounter
--- OUTSIDE RECORDS SUMMARY | 2025-07-03 15:54 | XMS_ITS | Encounter Summary ---
Author Organization Healthcare Address [address] [place] [address] Care Team Providers Care Project Inspector Name Role Phone Unknown, Unknown Primary Care Provider Unavailab le Encounter Details Date Type Department Care Team (Late st Contact Info) Description 07/06/2022 Lab Requisition [facility] [address] [place] [address] Aarti Mackenzie MD [address] 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 No / Unsure 07/06/2022 3:35 PM EDT documented as of this encounter [...] Peter LTG OT: Pt will demonstrate increased organ pipe maker metal strength to at least 50% of unaffected side by discharge. Occupational Therapy Improving( 10:25 AM EDT) No Hernandez Peter Pain: Patient will report a pain score of less than 2/10 within 4 weeks. Occupational Therapy Improving( 10:25 AM EDT) No Hernandez Peter documented as of this encounter Procedures Procedure Name Priority Date/Time Associated Diagnosis Comments WBC DIFFERENTIAL Routine 07/06/2022 2:30 PM EDT Infection following a procedure, unspecified, initial encounter CREATINE KINASE, TOTAL, PLASMA Routine 07/06/2022 2:30 PM EDT Infection following a procedure, unspecified, initial encounter CBC W/O DIFFERENTIAL Routine 07/06/2022 2:30 PM EDT Infection following a procedure, unspecified, initial encounter C-REACTIVE PROTEIN, PLASMA Routine 07/06/2022 2:30 PM EDT Infection following a procedure, unspecified, initial encounter COMPREHENSIVE METABOLIC PANEL, PLASMA Routine 07/06/2022 2:30 PM EDT Infection following a procedure, unspecified, initial encounter documented in this encounter Results * WBC Differential (07/06/2022 2:30 PM EDT) Differential Type LAB HEMATOLOGY METHOD 07/07/2022 1:50 PM EDT [facility] Neutrophils % 53.0 % LAB HEMATOLOGY METHOD 07/07/2022 1:50 PM EDT [facility] Lymphocytes % 33.0 % LAB HEMATOLOGY METHOD 07/07/2022 1:50 PM EDT [facility] Monocytes % 10.0 % LAB HEMATOLOGY METHOD 07/07/2022 1:50 PM EDT [facility] Eosinophils % 2.0 % LAB HEMATOLOGY METHOD 07/07/2022 1:50 PM EDT [facility] Basophils % 1.0 % LAB HEMATOLOGY METHOD 07/07/2022 1:50 PM EDT [facility] Immature Granulocytes % 1.0 % LAB HEMATOLOGY METHOD 07/07/2022 1:50 PM EDT [facility] Immature Granulocytes Absolute 0.04 0.00 - 0.06 10*3/uL LAB HEMATOLOGY METHOD 07/07/2022 1:50 PM EDT [facility] Neutrophils Absolute 3.24 1.60 - 6.10 10*3/uL LAB HEMATOLOGY METHOD 07/07/2022 1:50 PM EDT [facility] Lymphocytes Absolute 1.96 1.20 - 3.90 10*3/uL LAB HEMATOLOGY METHOD 07/07/2022 1:50 PM EDT [facility] Monocytes Absolute 0.62 0.30 - 0.90 10*3/uL LAB HEMATOLOGY METHOD 07/07/2022 1:50 PM EDT [facility] Eosinophils Absolute 0.11 0.00 - 0.50 10*3/uL LAB HEMATOLOGY METHOD 07/07/2022 1:50 PM EDT [facility] Basophils Absolute 0.03 0.00 - 0.10 10*3/uL LAB HEMATOLOGY METHOD 07/07/2022 1:50 PM EDT [facility] Blood Venous blood specimen / Unknown 07/06/2022 2:30 PM EDT 07/06/2022 6:32 PM EDT us Aarti Mackenzie MD LAB BLOOD ORDERABLES Final Resul t [facility] [address] [place] [address] * (ABNORMAL) Creatine Kinase (CK), Total (07/06/2022 2:30 PM EDT) Creatine Kinase, Plasma 391(H) 49 - 320 U/L 07/06/2022 6:55 PM EDT [facility] Blood Venous blood specimen / Unknown 07/06/2022 2:30 PM EDT 07/06/2022 6:32 PM EDT us Aarti Mackenzie MD LAB BLOOD ORDERABLES Final Resul t Performing Organization Address City/[facility] Co de Phone Number [facility] [address] [place] [address] * (ABNORMAL) CBC W/O Differential (07/06/2022 2:30 PM EDT) Pathologist [facility] WBC Count 6.15 3.70 - 10.30 10*3/uL LAB HEMATOLOGY METHOD 07/06/2022 6:41 PM EDT [facility] RBC Count 4.31(L) 4.60 - 6.10 10*6/uL LAB HEMATOLOGY METHOD 07/06/2022 6:41 PM EDT [facility] HGB 12.4(L) 13.7 - 17.5 g/dL LAB HEMATOLOGY METHOD 07/06/2022 6:41 PM EDT [facility] HCT 35.1(L) 40.0 - 51.0 % LAB HEMATOLOGY METHOD 07/06/2022 6:41 PM EDT [facility] Platelet Count 206 155 - 369 10*3/uL LAB HEMATOLOGY METHOD 07/06/2022 6:41 PM EDT [facility] MCV 81 79 - 98 fL LAB HEMATOLOGY METHOD 07/06/2022 6:41 PM EDT [facility] MCH 28.8 26.0 - 32.0 pg LAB HEMATOLOGY METHOD 07/06/2022 6:41 PM EDT [facility] MCHC 35.3 30.7 - 35.5 g/dL LAB HEMATOLOGY METHOD 07/06/2022 6:41 PM EDT [facility] RDW 13.2 11.5 - 14.5 % LAB HEMATOLOGY METHOD 07/06/2022 6:41 PM EDT [facility] MPV 9.5 8.8 - 12.5 fL LAB HEMATOLOGY METHOD 07/06/2022 6:41 PM EDT [facility] nRBC 0.0 <=0.0 per 100 WBCs LAB HEMATOLOGY METHOD 07/06/2022 6:41 PM EDT [facility] Blood Venous blood specimen / Unknown 07/06/2022 2:30 PM EDT 07/06/2022 6:32 PM EDT us Aarti Mackenzie MD LAB BLOOD ORDERABLES Final Resul t Performing Organization Address [facility] de Phone Number [facility] [address] [place] [address] * C-reactive protein (07/06/2022 2:30 PM EDT) CRP, Plasma <3.0 <=8.0 mg/L 07/06/2022 6:55 PM EDT [facility] Blood Venous blood specimen / Unknown 07/06/2022 2:30 PM EDT 07/06/2022 6:32 PM EDT Narrative [facility] - 07/06/2022 6:55 PM EDT This CRP test is appropriate for assessment of infection, systemic inflammation and/or tissue injury. To assess cardiovascular disease risk order high sensitivity CRP (CRPH). us Aarti Mackenzie MD LAB BLOOD ORDERABLES Final Resul t Performing Organization Address [facility] Phone Number [facility] [address] [place] [address] * (ABNORMAL) Comprehensive metabolic panel (07/06/2022 2:30 PM EDT) Glucose, Plasma 101(H) 74 - 99 mg/dL 07/06/2022 6:55 PM EDT [facility] BUN, Plasma 10 7 - 21 mg/dL 07/06/2022 6:55 PM EDT [facility] Creatinine, Plasma 1.06 0.80 - 1.30 mg/dL 07/06/2022 6:55 PM EDT [facility] BUN/Creatinine Ratio 9 07/06/2022 6:55 PM EDT [facility] Sodium, Plasma 142 136 - 145 mmol/L 07/06/2022 6:55 PM EDT [facility] Potassium, Plasma 3.9 3.7 - 4.8 mmol/L 07/06/2022 6:55 PM EDT [facility] Comment:Reference range for Serum potassium is 0.2 to 0.5 mmol/L higher than Plasma range. Chloride, Plasma 110(H) 97 - 107 mmol/L 07/06/2022 6:55 PM EDT [facility] CO2, Plasma 23 22 - 29 mmol/L 07/06/2022 6:55 PM EDT [facility] Anion Gap 9 6 - 16 mmol/L 07/06/2022 6:55 PM EDT [facility] Total Calcium, Plasma 9.0 8.9 - 10.2 mg/dL 07/06/2022 6:55 PM EDT [facility] Total Protein 6.7 6.3 - 7.9 g/dL 07/06/2022 6:55 PM EDT [facility] Albumin, Plasma 4.3 3.5 - 5.2 g/dL 07/06/2022 6:55 PM EDT [facility] AST, Plasma 34 12 - 40 U/L 07/06/2022 6:55 PM EDT [facility] ALT, Plasma 45(H) 11 - 41 U/L 07/06/2022 6:55 PM EDT [facility] Alkaline Phosphatase, Plasma 70 40 - 115 U/L 07/06/2022 6:55 PM EDT [facility] Total Bilirubin, Plasma 0.2 0.2 - 1.1 mg/dL 07/06/2022 6:55 PM EDT [facility] eGFRcr 81.9 mL/min/1.7 3m*2 07/06/2022 6:55 PM EDT [facility] Comment: Reported eGFRcr in mL/min/1.73m2 is based the CKD-EPI 2021 equation that does not use a race coefficient. Effective 04/26/22 our laboratory changed the eGFR calculation to the CKD-EPI 2021 equation from the previously reported eGFR, based on the MDRD equation. For comparisons between the two equations, please see laboratory website: [email or web address] Blood Venous blood specimen / Unknown 07/06/2022 2:30 PM EDT 07/06/2022 6:32 PM EDT us Arati Mackenzie MD LAB BLOOD ORDERABLES Final Resul t [facility] [address] [place] [address] documented in this encounter Visit Diagnoses Diagnosis [...] documented as of this encounter Care Teams Project Inspector Relationship Specialty Start Date End Date Unknown, Unknown [place], [place] PCP - General 07/12/21 documented as of this encounter
--- OUTSIDE RECORDS SUMMARY | 2025-07-03 15:54 | XMS_ITS | Encounter Summary ---
Author Organization Healthcare Address [address] 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 Occupational Therapy Improving( 10:25 AM EDT) No Hernandez Peter Pain: Patient will report a pain score of less than 2/10 within 4 weeks. Occupational Therapy Improving( 10:25 AM EDT) No Hernandez Peter documented as of this encounter Procedures Procedure Name Priority Date/Time Associated Diagnosis Comments CREATINE KINASE, TOTAL, PLASMA Routine 07/13/2022 2:00 PM EDT Infection following a procedure, unspecified, initial encounter CBC WITH AUTO DIFFERENTIAL Routine 07/13/2022 2:00 PM EDT Infection following a procedure, unspecified, initial encounter C-REACTIVE PROTEIN, PLASMA Routine 07/13/2022 2:00 PM EDT Infection following a procedure, unspecified, initial encounter COMPREHENSIVE METABOLIC PANEL, PLASMA Routine 07/13/2022 2:00 PM EDT Infection following a procedure, unspecified, initial encounter documented in this encounter Results * (ABNORMAL) CBC and Differential (07/13/2022 2:00 PM EDT) WBC Count 7.88 3.70 - 10.30 10*3/uL LAB HEMATOLOGY METHOD 07/13/2022 4:49 PM EDT [facility] RBC Count 4.65 4.60 - 6.10 10*6/uL LAB HEMATOLOGY METHOD 07/13/2022 4:49 PM EDT [facility] HGB 13.4(L) 13.7 - 17.5 g/dL LAB HEMATOLOGY METHOD 07/13/2022 4:49 PM EDT [facility] HCT 38.8(L) 40.0 - 51.0 % LAB HEMATOLOGY METHOD 07/13/2022 4:49 PM EDT [facility] Platelet Count 208 155 - 369 10*3/uL LAB HEMATOLOGY METHOD 07/13/2022 4:49 PM EDT [facility] MCV 83 79 - 98 fL LAB HEMATOLOGY METHOD 07/13/2022 4:49 PM EDT [facility] MCH 28.8 26.0 - 32.0 pg LAB HEMATOLOGY METHOD 07/13/2022 4:49 PM EDT [facility] MCHC 34.5 30.7 - 35.5 g/dL LAB HEMATOLOGY METHOD 07/13/2022 4:49 PM EDT [facility] RDW 13.4 11.5 - 14.5 % LAB HEMATOLOGY METHOD 07/13/2022 4:49 PM EDT [facility] MPV 9.8 8.8 - 12.5 fL LAB HEMATOLOGY METHOD 07/13/2022 4:49 PM EDT [facility] nRBC 0.0 <=0.0 per 100 WBCs LAB HEMATOLOGY METHOD 07/13/2022 4:49 PM EDT [facility] Differential Type Automated LAB HEMATOLOGY METHOD 07/13/2022 4:49 PM EDT [facility] Neutrophils % 55.0 % LAB HEMATOLOGY METHOD 07/13/2022 4:49 PM EDT [facility] Lymphocytes % 30.0 % LAB HEMATOLOGY METHOD 07/13/2022 4:49 PM EDT [facility] Monocytes % 11.0 % LAB HEMATOLOGY METHOD 07/13/2022 4:49 PM EDT [facility] Eosinophils % 2.0 % LAB HEMATOLOGY METHOD 07/13/2022 4:49 PM EDT [facility] Basophils % 1.0 % LAB HEMATOLOGY METHOD 07/13/2022 4:49 PM EDT [facility] Immature Granulocytes % 1.0 % LAB HEMATOLOGY METHOD 07/13/2022 4:49 PM EDT [facility] Neutrophils Absolute 4.35 1.60 - 6.10 10*3/uL LAB HEMATOLOGY METHOD 07/13/2022 4:49 PM EDT [facility] Lymphocytes Absolute 2.37 1.20 - 3.90 10*3/uL LAB HEMATOLOGY METHOD 07/13/2022 4:49 PM EDT [facility] Monocytes Absolute 0.87 0.30 - 0.90 10*3/uL LAB HEMATOLOGY METHOD 07/13/2022 4:49 PM EDT [facility] Eosinophils Absolute 0.14 0.00 - 0.50 10*3/uL LAB HEMATOLOGY METHOD 07/13/2022 4:49 PM EDT [facility] Basophils Absolute 0.05 0.00 - 0.10 10*3/uL LAB HEMATOLOGY METHOD 07/13/2022 4:49 PM EDT [facility] Immature Granulocytes Absolute 0.10(H) 0.00 - 0.06 10*3/uL LAB HEMATOLOGY METHOD 07/13/2022 4:49 PM EDT [facility] Blood Venous blood specimen / Unknown 07/13/2022 2:00 PM EDT 07/13/2022 3:59 PM EDT Narrative [facility] - 07/13/2022 4:49 PM EDT Therapeutic decision making should be based on absolute values, rather than percentages. Aarti Mackenzie MD LAB BLOOD ORDERABLES Final Resul t [facility] [address] [place] [id number] * (ABNORMAL) Creatine Kinase (CK), Total (07/13/2022 2:00 PM EDT) Creatine Kinase, Plasma 859(H) 49 - 320 U/L 07/13/2022 4:59 PM EDT [facility] Blood Venous blood specimen / Unknown 07/13/2022 2:00 PM EDT 07/13/2022 3:59 PM EDT us Aarti Mackenzie MD LAB BLOOD ORDERABLES Final Resul t Performing Organization Address [facility] Co de Phone Number [facility] [address] [place] [address] * C-reactive protein (07/13/2022 2:00 PM EDT) CRP, Plasma <3.0 <=8.0 mg/L 07/13/2022 4:59 PM EDT [facility] Blood Venous blood specimen / Unknown 07/13/2022 2:00 PM EDT 07/13/2022 3:59 PM EDT Narrative [facility] - 07/13/2022 4:59 PM EDT This CRP test is appropriate for assessment of infection, systemic inflammation and/or tissue injury. To assess cardiovascular disease risk order high sensitivity CRP (CRPH). us Aarti Mackenzie MD LAB BLOOD ORDERABLES Final Resul t Performing Organization Address [facility] de Phone Number [facility] [address] [place] [address] * (ABNORMAL) Comprehensive metabolic panel (07/13/2022 2:00 PM EDT) Glucose, Plasma 101(H) 74 - 99 mg/dL 07/13/2022 4:59 PM EDT [facility] BUN, Plasma 10 7 - 21 mg/dL 07/13/2022 4:59 PM EDT [facility] Creatinine, Plasma 0.91 0.80 - 1.30 mg/dL 07/13/2022 4:59 PM EDT [facility] BUN/Creatinine Ratio 11 07/13/2022 4:59 PM EDT [facility] Sodium, Plasma 141 136 - 145 mmol/L 07/13/2022 4:59 PM EDT [facility] Potassium, Plasma 4.0 3.7 - 4.8 mmol/L 07/13/2022 4:59 PM EDT [facility] Comment:Reference range for Serum potassium is 0.2 to 0.5 mmol/L higher than Plasma range. Chloride, Plasma 105 97 - 107 mmol/L 07/13/2022 4:59 PM EDT [facility] CO2, Plasma 25 22 - 29 mmol/L 07/13/2022 4:59 PM EDT [facility] Anion Gap 11 6 - 16 mmol/L 07/13/2022 4:59 PM EDT [facility] Total Calcium, Plasma 9.4 8.9 - 10.2 mg/dL 07/13/2022 4:59 PM EDT [facility] Total Protein 7.6 6.3 - 7.9 g/dL 07/13/2022 4:59 PM EDT [facility] Albumin, Plasma 4.7 3.5 - 5.2 g/dL 07/13/2022 4:59 PM EDT [facility] AST, Plasma 32 12 - 40 U/L 07/13/2022 4:59 PM EDT [facility] ALT, Plasma 33 11 - 41 U/L 07/13/2022 4:59 PM EDT [facility] Alkaline Phosphatase, Plasma 75 40 - 115 U/L 07/13/2022 4:59 PM EDT [facility] Total Bilirubin, Plasma 0.5 0.2 - 1.1 mg/dL 07/13/2022 4:59 PM EDT [facility] eGFRcr 98.3 mL/min/1.7 3m*2 07/13/2022 4:59 PM EDT [facility] Comment: Reported eGFRcr in mL/min/1.73m2 is based the CKD-EPI 202 equation that does not use a race coefficient. Effective 04/26/22 our laboratory changed the eGFR calculation to the CKD-EPI 2021 equation from the previously reported eGFR, based on the MDRD equation. For comparisons between the two equations, please see laboratory website: [email or web address] Blood Venous blood specimen / Unknown 07/13/2022 2:00 PM EDT 07/13/2022 3:59 PM EDT us Aarti Mackenzie MD LAB BLOOD ORDERABLES Final Resul t [facility] [address] [place] [address] documented in this encounter Visit Diagnoses Diagnosis [...] documented as of this encounter Care Teams Smocker Relationship Specialty Start Date End Date Unknown, Unknown AlfalfaLISA keene PCP - General 07/12/21 documented as of this encounter
--- NOTE | 2025-07-03 15:57 | CT_ITS ---
FINAL REPORT TECHNIQUE: Thin section axial images were obtained from the lung bases to the pubic symphysis without IV contrast. Coronal reconstruction images were obtained from the axial data. This study was performed with techniques to keep radiation doses as low as reasonably achievable, (ALARA). Individualized dose reduction techniques using automated exposure control or adjustment of mA and/or kV according to the patient's size were employed. CLINICAL HISTORY: ACUTE ABDOMINAL PAIN/LT FLANK/NOCTURIA/UTI SYMPTOM COMPARISON: 07/17/2023 FINDINGS: The lung bases are clear. There are no obstructing renal or ureteral stones. There is no hydronephrosis or perinephric stranding. The gallbladder is present. The spleen is mildly enlarged. The remaining unenhanced solid abdominal organs are without acute abnormality. There is no evidence of small bowel obstruction. The appendix is absent. GI tract is without acute abnormality. There is a moderate to large amount of retained stool. The prostate is mildly enlarged. There is no abdominal or pelvic lymphadenopathy or ascites. No acute osseous abnormality is identified. IMPRESSION: No renal or ureteral stones. No hydronephrosis. Splenomegaly. Reviewed, Interpreted and Dictated by Zoe Escobedo MD Transcribed by Anabela Coffey Authenticated and [facility]
== END 2025-07-03 23:59 | disposition home or self-care (01) ==
LOC: RAD 15:51
PROVIDERS: PCP Internal Medicine Adolescent Medicine
DX: R16.1 Splenomegaly, not elsewhere classified (principal); N40.1 Benign prostatic hyperplasia with lower urinary tract symptoms; R35.1 Nocturia; R10.A2 Flank pain, left side
CPT/HCPCS: 74176